=== PATIENT | female | born 1965 | race American Indian/Alaskan Native ===

== ENCOUNTER 2021-09-14 12:34 | Inpatient (IN) | payer MEDICAID ==
--- NOTE | 2021-09-14 13:25 | Emergency Department Report ---
ED Shortness of Breath HPI - General Chief Complaint: Dyspnea/Respdistress Stated Complaint: SHORTNESS OF BREATH Time Seen by Provider: 09/14/21 13:18 Source: patient, EMS Mode of arrival: Stretcher Limitations: No Limitations - History of Present Illness Initial Comments: Patient is a 55-year-old female with history of end-stage renal disease on dialysis Friday, insulin-dependent diabetes, COPD and hypertension brought in from home by EMS with complaint of shortness of breath and anxiety. States that she missed her last 2 dialysis appointments. Dialysis transport did not show up to her home today. She denies fever or chills. EMS reports stable vital signs during transport. - Related Data Allergies Allergy/AdvReac Type Severity Reaction Status Date / Time codeine AdvReac Itching Verified 09/14/21 12:56 ED Review of Systems ROS: Stated complaint: SHORTNESS OF BREATH Other details as noted in HPI Constitutional: denies: chills, fever Respiratory: shortness of breath Cardiovascular: denies: chest pain, palpitations Endocrine: no symptoms reported Gastrointestinal: denies: abdominal pain, nausea, diarrhea Genitourinary: denies: urgency, dysuria, discharge Musculoskeletal: denies: back pain, joint swelling, arthralgia Skin: denies: rash, lesions Neurological: denies: headache, weakness, paresthesias Psychiatric: anxiety ED Past Medical Hx - Past Medical History Hx Hypertension: Yes Hx Diabetes: Yes Hx Renal Disease: Yes (HD MWF) Hx COPD: Yes ED Physical Exam - General Limitations: No Limitations General appearance: alert, in no apparent distress, obese - Head Head exam: Present: atraumatic, normocephalic - Respiratory Respiratory exam: Present: decreased breath sounds, other (Nasal cannula O2 in place). Absent: respiratory distress - Cardiovascular Cardiovascular Exam: Present: regular rate, normal rhythm, normal heart sounds - GI/Abdominal GI/Abdominal exam: Present: soft. Absent: distended, tenderness - Rectal Rectal exam: Present: deferred - Extremities Exam Extremities exam: Present: normal inspection. Absent: pedal edema - Neurological Exam Neurological exam: Present: alert, oriented X3 - Psychiatric Psychiatric exam: Present: normal affect, normal mood - Skin Skin exam: Present: warm, dry, intact, normal color ED Course Vital Signs 09/14/21 09/14/21 09/14/21 12:56 13:29 14:31 Temperature 97.6 F 98.3 F Pulse Rate 62 47 L Respiratory 18 20 20 Rate Blood Pressure 132/55 Blood Pressure 149/55 132/55 [Left] O2 Sat by Pulse 100 99 97 Oximetry 09/14/21 15:19 Temperature 98.2 F Pulse Rate 50 L Respiratory 20 Rate Blood Pressure Blood Pressure 130/33 [Left] O2 Sat by Pulse 95 Oximetry ED Medical Decision Making - Lab Data Result diagrams: 09/14/21 13:48 09/14/21 13:48 - EKG Data -: EKG Interpreted by Me EKG shows normal: sinus rhythm Rate: bradycardia - EKG Data 09/14/21 16:15 Low voltage. Peaked T waves. - Radiology Data Radiology results: image reviewed interpreted by me: Cardiomegaly present with bilateral interstitial edema. - Medical Decision Making EKG findings concerning for hyperkalemia. This was confirmed by chemistry revealing serum potassium of 7.3. Creatinine 15.5, BUN 101. Patient given IV calcium gluconate, oral Kayexalate, IV insulin and dextrose. Nephrology consulted and will perform emergent dialysis in the emergency department. Will admit to hospitalist. Critical Care Time: Yes Critical care time in (mins) excluding proc time.: 60 Critical care attestation.: If time is entered above; I have spent that time in minutes in the direct care of this critically ill patient, excluding procedure time. ED Disposition Clinical Impression: Hyperkalemia, Volume overload, Pulmonary edema Disposition: 09 ADMITTED INPATIENT Is pt being admited?: Yes Condition: Stable Instructions: Pulmonary Edema (ED)
--- NOTE | 2021-09-14 13:51 | XRay Report ---
CHEST 1 VIEW 09/14/2021 12:37 PM INDICATION / CLINICAL INFORMATION: Dyspnea. History of ESRD. COMPARISON: None available. FINDINGS: SUPPORT DEVICES: None. HEART / MEDIASTINUM: The cardiac silhouette is mildly enlarged with central vascular congestion. LUNGS / PLEURA: There are generalized bilateral pulmonary opacities. No significant pleural effusion. No pneumothorax. ADDITIONAL FINDINGS: No significant additional findings. IMPRESSION: Mild cardiomegaly with central vascular congestion and probable bilateral atelectasis/edema. Signer Name: Pito Timmons MD Signed: 09/14/2021 1:46 PM Workstation Name: [id number]
[2021-09-14 14:36] LABS: Hematocrit 31.6 % (30.3-42.9); Hemoglobin 9.9 gm/dl (10.1-14.3); Mean Corpuscular HGB Conc 31 % (30-34); Mean Corpuscular Volume 97 fl (79-97); Platelet Count 248 K/mm3 (140-440); Red Blood Count 3.28 M/mm3 (3.65-5.03); Red Cell Distribution Width 15.3 % (13.2-15.2)
[2021-09-14 15:03] LABS: Basophils % (Auto) 0.7 % (0.0-1.8); Eosinophils # (Auto) 0.3 K/mm3 (0.0-0.4); Eosinophils % (Auto) 5.3 % (0.0-4.3); Lymphocytes # (Auto) 1.7 K/mm3 (1.2-5.4); Lymphocytes % (Auto) 34.3 % (13.4-35.0); Monocytes # (Auto) 0.4 K/mm3 (0.0-0.8); Monocytes % (Auto) 8.5 % (0.0-7.3)
[2021-09-14] MEDS ORDERED: ACETAMINOPHEN 325 MG TAB PO ONE (15:21)
[2021-09-14 16:02] LABS: Albumin 4.5 g/dL (3.9-5); Calcium 9.6 mg/dL (8.4-10.2)
[2021-09-14] MEDS ORDERED: SODIUM POLYSTYRENE 15 GM/60 ML ORAL LIQD PO ONE (16:08)
[2021-09-14] MEDS ORDERED: DEXTROSE 50% IN WATER (25GM) 50 ML VIAL IV ONE (16:09)
[2021-09-14] MEDS ORDERED: INSULIN REGULAR, HUMAN 100 UNITS/1 ML IV ONE (16:09)
[2021-09-14] MEDS ORDERED: SODIUM CHLORIDE 0.9% 100 ML IV PRN (16:46)
--- NOTE | 2021-09-14 16:49 | Event Note ---
Date: 09/14/21 Consulted by ED for emergent HD. Per Dr. Galeas, patient missed 2 dialysis treatments. She presents to the ED with SOB. Labs notable for K>7, BUN>100 * Emergent HD ordered - discussed with dialysis charge master analyst * Full consult to follow
[2021-09-14] MEDS ORDERED: DEXTROSE 50% IN WATER (25GM) 50 ML SYRINGE IV ONE (17:00)
[2021-09-14] MEDS ORDERED: CALCIUM GLUCONATE 1,000 MG in SODIUM CHLORIDE 0.9% 100 ML IV ONE (17:00)
[2021-09-14] MEDS ORDERED: CALCIUM GLUCONATE 2,000 MG in SODIUM CHLORIDE 0.9% 100 ML IV ONE (20:07)
[2021-09-14] MEDS ORDERED: METOCLOPRAMIDE 10 MG/2 ML INJ IV PRN (20:08)
[2021-09-14] MEDS ORDERED: MORPHINE 2 MG/1 ML INJ IV PRN (20:08)
[2021-09-14] MEDS ORDERED: ONDANSETRON 4 MG/2 ML INJ IV PRN (20:08)
--- NOTE | 2021-09-14 20:16 | History and Physical Report ---
History of Present Illness Date of examination: 09/14/21 Date of admission: 09/14/2021 Chief complaint: Increasing shortness of breath for last 36 hours History of present illness: 55-year-old -[place] female with history of hypertension, diabetes, end- stage renal disease on hemodialysis on Friday and COPD comes in for increasing shortness of breath for the last 36 hours. Patient missed 2 dialysis appointments. Apparently dialysis transport did not show up. No fever or chills. Shortness of breath minimal exertion present orthopnea present. No chest pain. No diaphoresis. No palpitations no nausea or vomiting. Minimal exercises are exacerbating factor rest is a relieving factor. - Past Medical History --Hypertension: Yes --Diabetes: Yes --Renal Disease: Yes (HD MWF) --COPD: Yes -past surgical history --AV fistula -social history -- No smoking or alcohol. -Family history --Htn Review of Systems ROS: Stated complaint: SHORTNESS OF BREATH Other details as noted in HPI Constitutional: denies: chills, fever Respiratory: shortness of breath Cardiovascular: Shortness of breath and orthopnea present, no chest pain. Endocrine: no symptoms reported Gastrointestinal: denies: abdominal pain, nausea, diarrhea Genitourinary: denies: urgency, dysuria, discharge Musculoskeletal: denies: back pain, joint swelling, arthralgia Skin: denies: rash, lesions Neurological: denies: headache, weakness, paresthesias Psychiatric: anxiety Medications and Allergies Allergies Allergy/AdvReac Type Severity Reaction Status Date / Time codeine Allergy Itching Verified 09/14/21 20:22 Active Meds: Active Medications Sodium Chloride (Nacl 0.9%) 100 mls @ 999 mls/hr IV SRI PRN PRN Reason: Hypotension Exam - Constitutional Vitals: Temp Pulse Resp BP Pulse Ox 98.4 F 93 H 15 133/55 92 09/14/21 18:10 09/14/21 19:30 09/14/21 18:10 09/14/21 19:30 09/14/21 18:10 General appearance: Present: mild distress, well-nourished - EENT Eyes: Present: PERRL ENT: hearing intact, clear oral mucosa - Neck Neck: Present: supple, normal ROM - Respiratory Respiratory effort: normal Respiratory: bilateral: CTA, rales (Scattered) - Cardiovascular Heart rate: 78 Rhythm: regular Heart Sounds: Present: S1 & S2. Absent: rub, click - Extremities Extremities: pulses symmetrical, No edema Peripheral Pulses: within normal limits - Abdominal General gastrointestinal: Present: soft, non-tender, non-distended, normal bowel sounds Female genitourinary: Present: normal - Integumentary Integumentary: Present: clear, warm, dry - Musculoskeletal Musculoskeletal: gait normal, strength equal bilaterally - Psychiatric Psychiatric: appropriate mood/affect, intact judgment & insight - Neurologic Neurologic: CNII-XII intact, moves all extremities HEART Score - HEART Score History: Slightly suspicious Age: 45-65 Risk factors: > 3 risk factors or hx of atherosclerotic disease Troponin: 1-3x normal limit - Critical Actions Critical Actions: 4-6 pts:12-16.6% risk of adverse cardiac event. Should be admitted Results - Labs CBC & Chem 7: 09/14/21 13:48 09/14/21 22:00 Labs: Laboratory Last Values WBC 5.3 K/mm3 (4.5-11.0) 09/14/21 13:48 RBC 3.28 M/mm3 (3.65-5.03) L 09/14/21 13:48 Hgb 9.9 gm/dl (10.1-14.3) L 09/14/21 13:48 Hct 31.6 % (30.3-42.9) 09/14/21 13:48 MCV 97 fl (79-97) 09/14/21 13:48 MCH 30 pg (28-32) 09/14/21 13:48 MCHC 31 % (30-34) 09/14/21 13:48 RDW 15.3 % (13.2-15.2) H 09/14/21 13:48 Plt Count 248 K/mm3 (140-440) 09/14/21 13:48 Lymph % (Auto) 34.3 % (13.4-35.0) 09/14/21 13:48 [place] % (Auto) 8.5 % (0.0-7.3) H 09/14/21 13:48 Eos % (Auto) 5.3 % (0.0-4.3) H 09/14/21 13:48 Baso % (Auto) 0.7 % (0.0-1.8) 09/14/21 13:48 Lymph # (Auto) 1.7 K/mm3 (1.2-5.4) 09/14/21 13:48 [place] # (Auto) 0.4 K/mm3 (0.0-0.8) 09/14/21 13:48 Eos # (Auto) 0.3 K/mm3 (0.0-0.4) 09/14/21 13:48 Baso # (Auto) 0.0 K/mm3 (0.0-0.1) 09/14/21 13:48 Seg Neutrophils % 51.2 % (40.0-70.0) 09/14/21 13:48 Seg Neutrophils # 2.5 K/mm3 (1.8-7.7) 09/14/21 13:48 Sodium 135 mmol/L (137-145) L 09/14/21 13:48 Potassium 7.3 mmol/L (3.6-5.0) H* 09/14/21 13:48 Chloride 94.3 mmol/L (98-107) L 09/14/21 13:48 Carbon Dioxide 18 mmol/L (22-30) L 09/14/21 13:48 Anion Gap 30 mmol/L 09/14/21 13:48 BUN 101 mg/dL (7-17) H 09/14/21 13:48 Creatinine 15.5 mg/dL (0.6-1.2) H 09/14/21 13:48 Estimated GFR 3 ml/min 09/14/21 13:48 BUN/Creatinine Ratio 7 % 09/14/21 13:48 Glucose 74 mg/dL (65-100) 09/14/21 13:48 Calcium 9.6 mg/dL (8.4-10.2) 09/14/21 13:48 Total Bilirubin 0.40 mg/dL (0.1-1.2) 09/14/21 13:48 AST 13 units/L (5-40) 09/14/21 13:48 ALT 7 units/L (7-56) 09/14/21 13:48 Alkaline Phosphatase 71 units/L (35-129) 09/14/21 13:48 NT-Pro-B Natriuret Pep 8056 pg/mL (0-900) H 09/14/21 13:48 Total Protein 8.0 g/dL (6.3-8.2) 09/14/21 13:48 Albumin 4.5 g/dL (3.9-5) 09/14/21 13:48 Albumin/Globulin Ratio 1.3 % 09/14/21 13:48 Short CBC 09/14/21 Range/Units 13:48 WBC 5.3 (4.5-11.0) K/mm3 Hgb 9.9 L (10.1-14.3) gm/dl Hct 31.6 (30.3-42.9) % Plt Count 248 (140-440) K/mm3 BMP 09/14/21 09/14/21 13:48 22:00 Sodium 135 L Potassium 7.3 H* 4.2 D Chloride 94.3 L Carbon Dioxide 18 L BUN 101 H Creatinine 15.5 H Glucose 74 Calcium 9.6 Liver Function 09/14/21 Range/Units 13:48 Total Bilirubin 0.40 (0.1-1.2) mg/dL AST 13 (5-40) units/L ALT 7 (7-56) units/L Alkaline Phosphatase 71 (35-129) units/L Albumin 4.5 (3.9-5) g/dL - Imaging and Cardiology EKG: report reviewed (Sinus bradycardia, heart rate of 59/min, multiform vent ricular premature complexes. Low voltage precordial leads.) Chest x-ray: report reviewed Imaging and Cardiology: Chest x-ray Mild cardiomegaly with central vascular congestion and probable bilateral atelectasis and edema. Assessment and Plan Advance Directives: Yes (Full code) VTE prophylaxis?: Chemical Plan of care discussed with patient/family: Yes - Patient Problems (1) Acute respiratory failure with hypoxia Current Visit: Yes Status: Acute Plan to address problem: Patient is hypoxic initially at the time of admission to the emergency room Saturations in 86 to 88% Oxygen supplementation as per respiratory therapy (2) Hyperkalemia Current Visit: Yes Status: Acute Plan to address problem: Patient has a potassium of 7.3 Kayexalate and IV calcium gluconate and insulin given Emergent hemodialysis Orders placed Nephrology follow-up appreciated (3) Pulmonary edema Current Visit: Yes Status: Acute Qualifiers: Chronicity: acute Qualified Code(s): J81.0 - Acute pulmonary edema Plan to address problem: Secondary to volume overload and missed hemodialysis Emergent hemodialysis for increased ultrafiltration and volume removal of about 2 L Reevaluated. (4) End-stage renal disease on hemodialysis Current Visit: Yes Status: Acute Plan to address problem: Emergent hemodialysis orders were placed (5) T2DM (type 2 diabetes mellitus) Current Visit: Yes Status: Chronic Qualifiers: Diabetes mellitus correction insulin use: unspecified terminal worker insulin use status Plan to address problem: Coverage for now (6) Anemia Current Visit: Yes Status: Chronic Qualifiers: Anemia type: due to chronic kidney disease Plan to address problem: Epogen as per nephrology (7) DVT prophylaxis Current Visit: Yes Status: Acute Plan to address problem: GI prophylaxis and heparin (8) Advance care planning Current Visit: Yes Status: Acute Plan to address problem: Disease education conducted, care plan discussed, diagnosis discussed prognosis discussed and patient acknowledged understanding with care plan. Patient is full code. Care plan +30 minutes.
[2021-09-14 20:36] LABS: Hepatitis B Surface Antigen Non-Reactive (Negative); Hepatitis C Virus Antibody Non-Reactive (NonReactive)
[2021-09-15] MEDS: HEPARIN 5,000 UNIT/1 ML VIAL SUB-Q SCH ×4 (03:21→21:40)
[2021-09-15 08:25] LABS: Basophils % (Auto) 0.7 % (0.0-1.8); Eosinophils # (Auto) 0.3 K/mm3 (0.0-0.4); Eosinophils % (Auto) 5.5 % (0.0-4.3); Hematocrit 29.4 % (30.3-42.9); Lymphocytes # (Auto) 1.1 K/mm3 (1.2-5.4); Lymphocytes % (Auto) 24.3 % (13.4-35.0); Mean Corpuscular HGB Conc 31 % (30-34); Mean Corpuscular Volume 96 fl (79-97); Monocytes # (Auto) 0.5 K/mm3 (0.0-0.8); Monocytes % (Auto) 10.1 % (0.0-7.3); Platelet Count 255 K/mm3 (140-440); Red Blood Count 3.05 M/mm3 (3.65-5.03); Red Cell Distribution Width 14.7 % (13.2-15.2)
[2021-09-15 08:31] LABS: Albumin 4.1 g/dL (3.9-5); Calcium 9.5 mg/dL (8.4-10.2)
--- NOTE | 2021-09-15 08:43 | Progress Note ---
Assessment and Plan Assessment and plan: History of present illness: 55-year-old -[place] female with history of hypertension, diabetes, end- stage renal disease on hemodialysis on Friday and COPD comes in for increasing shortness of breath for the last 36 hours. Patient missed 2 dialysis appointments. Apparently dialysis transport did not show up. No fever or chills. Shortness of breath minimal exertion present orthopnea present. No chest pain. No diaphoresis. No palpitations no nausea or vomiting. Minimal exercises are exacerbating factor rest is a relieving factor. Hospital Course: 09/15: Patient oxygenation improved. She is currently on 2 L/min nasal cannula. She utilizes 3 L at home per my discussion. Potassium improved after Kayexalate administration on admission, last BMP demonstrates K =4.7. Will continue with dialysis while here in the hospital. Discussed case with Dr. Wadsworth, patient is from out of [facility] does not have a dialysis chair here locally as she recently moved. Will consult case management for assistance. Assessment and Plan: (1) Acute respiratory failure with hypoxia Current Visit: Yes Status: Acute Plan to address problem: Patient is hypoxic initially at the time of admission to the emergency room Saturations in 86 to 88% Oxygen supplementation as per respiratory therapy, home oxygen requirement 3 L/m in. (2) Hyperkalemia Current Visit: Yes Status: Acute Plan to address problem: Patient has a potassium of 7.3 Kayexalate and IV calcium gluconate and insulin given Emergent hemodialysis Orders placed Nephrology follow-up appreciated (3) Pulmonary edema Current Visit: Yes Status: Acute Qualifiers: Chronicity: acute Qualified Code(s): J81.0 - Acute pulmonary edema Plan to address problem: Secondary to volume overload and missed hemodialysis Emergent hemodialysis for increased ultrafiltration and volume removal of about 2 L Reevaluated. 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 Patient is full code. Care plan +30 minutes. #Morbid Obesity - BMI 50.8 - Counseled patient on the importance of weight loss, incorporating exercise, and dietary changes (lean meats, fresh fruits and vegetables, and water intake). Patient expresses understanding. - Time: +15 min #Preventative health care - preventative health counseling regarding management of life stressors, medication compliance and overall effect of chronic medical conditions on overall health. Encourage patient to follow up closely with with OP providers +30 minutes. History Interval history: No acute complaints this morning. Currently on 2 L/min nasal cannula oxygen. Home oxygen requirement is 3 L per patient. She has no issues with breathing per my discussion with her. Patient was complaining about diarrhea from Kayexalate. Remainder of ROS negative Hospitalist Physical - Physical exam Narrative exam: Physical Exam: VITAL SIGNS: Reviewed. GENERAL: The patient appears normally developed, Vital signs as documented. Obese HEAD: No signs of head trauma. EYES: Pupils are equal. Extraocular motions intact. EARS: Hearing grossly intact. MOUTH: Oropharynx is normal. NECK: No adenopathy, no JVD. CHEST: Chest with clear breath sounds bilaterally. No wheezes, rales, or rhonchi. CARDIAC: Regular rate and rhythm. S1 and S2, without murmurs, gallops, or rubs. VASCULAR: No Edema. Peripheral pulses normal and equal in all extremities. ABDOMEN: Soft, non tender and non distended. No rebound or guarding, and no masses palpated. Bowel Sounds normal. MUSCULOSKELETAL: Good range of motion of all major joints. Extremities without clubbing, cyanosis or edema. NEUROLOGIC EXAM: Alert and oriented x 4. no focal sensory or strength deficits. PSYCHIATRIC: Mood normal. SKIN: detail exam as documented in skin assessment - Constitutional Vitals: Temp Pulse Resp BP Pulse Ox 97.8 F 87 20 155/71 97 09/15/21 04:07 09/15/21 05:28 09/15/21 04:07 09/15/21 04:07 09/15/21 04:49 General appearance: Present: mild distress, well-nourished HEART Score - HEART Score Age: 45-65 Risk factors: > 3 risk factors or hx of atherosclerotic disease Troponin: 1-3x normal limit - Critical Actions Critical Actions: 4-6 pts:12-16.6% risk of adverse cardiac event. Should be admitted Results - Labs CBC & Chem 7: 09/15/21 06:44 09/15/21 06:44 Labs: Laboratory Last Values WBC 4.6 K/mm3 (4.5-11.0) 09/15/21 06:44 RBC 3.05 M/mm3 (3.65-5.03) L 09/15/21 06:44 Hgb 9.0 gm/dl (10.1-14.3) L 09/15/21 06:44 Hct 29.4 % (30.3-42.9) L 09/15/21 06:44 MCV 96 fl (79-97) 09/15/21 06:44 MCH 29 pg (28-32) 09/15/21 06:44 MCHC 31 % (30-34) 09/15/21 06:44 RDW 14.7 % (13.2-15.2) 09/15/21 06:44 Plt Count 255 K/mm3 (140-440) 09/15/21 06:44 Lymph % (Auto) 24.3 % (13.4-35.0) 09/15/21 06:44 [place] % (Auto) 10.1 % (0.0-7.3) H 09/15/21 06:44 Eos % (Auto) 5.5 % (0.0-4.3) H 09/15/21 06:44 Baso % (Auto) 0.7 % (0.0-1.8) 09/15/21 06:44 Lymph # (Auto) 1.1 K/mm3 (1.2-5.4) L 09/15/21 06:44 [place] # (Auto) 0.5 K/mm3 (0.0-0.8) 09/15/21 06:44 Eos # (Auto) 0.3 K/mm3 (0.0-0.4) 09/15/21 06:44 Baso # (Auto) 0.0 K/mm3 (0.0-0.1) 09/15/21 06:44 Seg Neutrophils % 59.4 % (40.0-70.0) 09/15/21 06:44 Seg Neutrophils # 2.7 K/mm3 (1.8-7.7) 09/15/21 06:44 Sodium 135 mmol/L (137-145) L 09/14/21 13:48 Potassium 4.2 mmol/L (3.6-5.0) D 09/14/21 22:00 Chloride 94.3 mmol/L (98-107) L 09/14/21 13:48 Carbon Dioxide 18 mmol/L (22-30) L 09/14/21 13:48 Anion Gap 30 mmol/L 09/14/21 13:48 BUN 101 mg/dL (7-17) H 09/14/21 13:48 Creatinine 15.5 mg/dL (0.6-1.2) H 09/14/21 13:48 Estimated GFR 3 ml/min 09/14/21 13:48 BUN/Creatinine Ratio 7 % 09/14/21 13:48 Glucose 74 mg/dL (65-100) 09/14/21 13:48 Calcium 9.6 mg/dL (8.4-10.2) 09/14/21 13:48 Total Bilirubin 0.40 mg/dL (0.1-1.2) 09/14/21 13:48 AST 13 units/L (5-40) 09/14/21 13:48 ALT 7 units/L (7-56) 09/14/21 13:48 Alkaline Phosphatase 71 units/L (35-129) 09/14/21 13:48 NT-Pro-B Natriuret Pep 8056 pg/mL (0-900) H 09/14/21 13:48 Total Protein 8.0 g/dL (6.3-8.2) 09/14/21 13:48 Albumin 4.5 g/dL (3.9-5) 09/14/21 13:48 Albumin/Globulin Ratio 1.3 % 09/15/21 06:44 Hepatitis A IgM Ab Non-reactive (NonReactive) 09/14/21 19:42 Hep Bs Antigen Non-reactive (Negative) 09/14/21 19:42 Hep B Core IgM Ab Non-reactive (NonReactive) 09/14/21 19:42 Hepatitis C Antibody Non-reactive (NonReactive) 09/14/21 19:42 Smith/IV: Voiding Method Bedside Commode Active Medications - Current Medications Current Medications: Generic Name Dose Route Start Last Admin Trade Name Freq PRN Reason Stop Dose Admin Acetaminophen 650 mg 09/14/21 20:08 Acetaminophen 325 Mg Tab PO Q4H PRN Pain MILD(1-3)/Fever >100.5/BURTON Heparin Sodium (Porcine) 5,000 unit 09/14/21 22:00 09/15/21 03:21 Heparin 5,000 Unit/1 Ml Vial SUB-Q 5,000 unit Q12HR NINA Administration Sodium Chloride 100 mls @ 999 mls/hr 09/14/21 16:46 Nacl 0.9% IV SRI PRN Hypotension Insulin Human Lispro 0 unit 09/15/21 07:30 Insulin Lispro 100 Unit/Ml SUB-Q ACHS [facility] Protocol Metoclopramide HCl 10 mg 09/14/21 20:08 Metoclopramide 10 Mg/2 Ml Inj IV Q6H PRN Nausea And Vomiting Morphine Sulfate 2 mg 09/14/21 20:08 Morphine 2 Mg/1 Ml Inj IV Q4H PRN Pain, Moderate (4-6) Ondansetron HCl 4 mg 09/14/21 20:08 Ondansetron 4 Mg/2 Ml Inj IV Q8H PRN Nausea And Vomiting Oxycodone/Acetaminophen 1 tab 09/14/21 20:08 Oxycodone /Acetaminophen 5-325mg Tab PO Q6H PRN Pain, Moderate (4-6) Sodium Chloride 10 ml 09/14/21 22:00 09/15/21 05:36 Sodium Chloride 0.9% 10 Ml Flush Syringe IV Not Given BID NINA Sodium Chloride 10 ml 09/14/21 20:08 Sodium Chloride 0.9% 10 Ml Flush Syringe IV PRN PRN LINE FLUSH
[2021-09-15] MEDS: INSULIN LISPRO 100 UNIT/ML SUB-Q SCH ×4 (09:12→21:36)
[2021-09-15] MEDS: ACETAMINOPHEN 325 MG TAB PO PRN ×2 (09:16→21:37)
--- NOTE | 2021-09-15 13:12 | Consultation ---
History of Present Illness - Reason for Consult Consult date: 09/15/21 end stage renal disease, hyperkalemia - History of Present Illness Mrs. Jerez is a 55yo with ESRD on HD who presented to the ED with SOB. She reports that she missed 2 dialysis treatments. Labs notable for K>7, BUN>100. She is s/p emergent HD overnight. Today, she has no complaints. Mrs. Jerez reports that she recently relocated from [facility]. She states that she has not yet established dialysis care at an outpatient facility. Past History Past Medical History: ESRD, hypertension Past Surgical History: Other (DIANA AV access creation) Social history: no significant social history Family history: no significant family history Medications and Allergies Allergies Allergy/AdvReac Type Severity Reaction Status Date / Time codeine Allergy Itching Verified 09/14/21 20:22 Home Medications Medication Instructions Recorded Confirmed Last Taken Type ALPRAZolam [Xanax TAB] 0.5 mg PO BID PRN 09/15/21 09/15/21 Unknown History Albuterol Mdi (or & Nicu Only) 2 puff IH QID PRN 09/15/21 09/15/21 Unknown History [ProAir HFA Inhaler] Albuterol Sulfate [Albuterol 0.63% 0.63 mg IH DAILY 09/15/21 09/15/21 Unknown History NEBS] Budesonide/Formoterol Fumarate 10.2 gm IH BID 09/15/21 09/15/21 Unknown History [Symbicort 160-4.5 Mcg Inhaler] Metoprolol [Lopressor] 25 mg PO DAILY 09/15/21 09/15/21 Unknown History amLODIPine 5 mg PO DAILY 09/15/21 09/15/21 Unknown History Active Meds: Active Medications Acetaminophen (Acetaminophen 325 Mg Tab) 650 mg PO Q4H PRN PRN Reason: Pain MILD(1-3)/Fever >100.5/BURTON Last Admin: 09/15/21 09:16 Dose: 650 mg Heparin Sodium (Porcine) (Heparin 5,000 Unit/1 Ml Vial) 5,000 unit SUB-Q Q12HR NINA Last Admin: 09/15/21 09:17 Dose: 5,000 unit Sodium Chloride (Nacl 0.9%) 100 mls @ 999 mls/hr IV SRI PRN PRN Reason: Hypotension Insulin Human Lispro (Insulin Lispro 100 Unit/Ml) 0 unit SUB-Q ACHS NINA; Protocol Last Admin: 09/15/21 09:12 Dose: Not Given Metoclopramide HCl (Metoclopramide 10 Mg/2 Ml Inj) 10 mg IV Q6H PRN PRN Reason: Nausea And Vomiting Morphine Sulfate (Morphine 2 Mg/1 Ml Inj) 2 mg IV Q4H PRN PRN Reason: Pain, Moderate (4-6) Ondansetron HCl (Ondansetron 4 Mg/2 Ml Inj) 4 mg IV Q8H PRN PRN Reason: Nausea And Vomiting Oxycodone/Acetaminophen (Oxycodone /Acetaminophen 5-325mg Tab) 1 tab PO Q6H PRN PRN Reason: Pain, Moderate (4-6) Sodium Chloride (Sodium Chloride 0.9% 10 Ml Flush Syringe) 10 ml IV BID [facility] Last Admin: 09/15/21 09:17 Dose: 10 ml Sodium Chloride (Sodium Chloride 0.9% 10 Ml Flush Syringe) 10 ml IV PRN PRN PRN Reason: LINE FLUSH Review of Systems All systems: negative Exam - Vital Signs Vital signs: Vital Signs Temp Pulse Resp BP Pulse Ox 97.6 F 62 18 149/55 100 09/14/21 12:56 09/14/21 12:56 09/14/21 12:56 09/14/21 12:56 09/14/21 12:56 - General Appearance General appearance: well-developed, well-nourished EENT: ATNC Respiratory: Decreased Breath Sounds Gastrointestinal: Present: obese. Absent: tenderness, distended Integumentary: warm and dry Neurologic: no focal deficit, alert and oriented x3 Psychiatric: cooperative Results - Lab Results 09/15/21 06:44 09/15/21 06:44 Most recent lab results Calcium 9.5 mg/dL (8.4-10.2) 09/15/21 06:44 Assessment and Plan Impression: * End stage renal disease * Severe hyperkalemia * Uremia * Hypertension * Anemia secondary to ESRD * Secondary hyperparathyroidism Plan: * No acute need for HD today * In order to ensure a safe discharge, recommend that patient remain hospitalized to secure outpatient dialysis clinic * CM consult for outpatient HD clinic placement * Renal diet * Epogen TIW prn * Dose medications for renal function
[2021-09-15] MEDS: oxyCODONE /ACETAMINOPHEN 5-325MG TAB PO PRN (13:18)
[2021-09-16] MEDS: ACETAMINOPHEN 325 MG TAB PO PRN ×3 (05:58→21:22)
[2021-09-16 06:19] LABS: Calcium 9.3 mg/dL (8.4-10.2)
[2021-09-16] MEDS: INSULIN LISPRO 100 UNIT/ML SUB-Q SCH ×4 (08:21→21:09)
[2021-09-16] MEDS: oxyCODONE /ACETAMINOPHEN 5-325MG TAB PO PRN ×2 (08:21→23:34)
[2021-09-16] MEDS: ALBUTEROL 2.5 MG/3 ML NEBU IH PRN ×2 (09:54→23:38)
[2021-09-16] MEDS: HEPARIN 5,000 UNIT/1 ML VIAL SUB-Q SCH ×2 (10:17→21:23)
[2021-09-16] MEDS: ALPRAZolam 0.25 MG TAB PO PRN ×2 (10:22→23:34)
[2021-09-16] MEDS ORDERED: SODIUM CHLORIDE 0.9% 100 ML IV PRN (16:31)
--- NOTE | 2021-09-16 18:31 | Progress Note ---
Assessment and Plan Impression: * End stage renal disease * Severe hyperkalemia * Uremia * Hypertension * Anemia secondary to ESRD * Secondary hyperparathyroidism Plan: * No acute need for HD today * Hemodialysis tomorrow - continue HD MWF * Renal diet * Epogen TIW prn * Dose medications for renal function * In order to ensure a safe discharge, recommend that patient remain hospitalized to secure outpatient dialysis clinic * CM consult for outpatient HD clinic placement Subjective Date of service: 09/16/21 Interval history: Patient has no complaints today Objective - Vital Signs Vital signs: Vital Signs - 12hr 09/16/21 09/16/21 09/16/21 08:17 08:35 08:40 Temperature 98.0 F Pulse Rate 80 Pulse Rate [ Anterior Bilateral Throughout] Respiratory 18 16 Rate Respiratory Rate [Anterior Bilateral Throughout] Blood Pressure 147/83 159/84 Blood Pressure [Left] O2 Sat by Pulse 100 Oximetry 09/16/21 09/16/21 09/16/21 09:00 09:55 10:00 Temperature Pulse Rate Pulse Rate [ 76 Anterior Bilateral Throughout] Respiratory Rate Respiratory 20 Rate [Anterior Bilateral Throughout] Blood Pressure Blood Pressure 147/83 [Left] O2 Sat by Pulse 99 Oximetry 09/16/21 09/16/21 11:41 14:00 Temperature Pulse Rate 78 Pulse Rate [ Anterior Bilateral Throughout] Respiratory 18 Rate Respiratory Rate [Anterior Bilateral Throughout] Blood Pressure Blood Pressure [Left] O2 Sat by Pulse 96 Oximetry - General Appearance General appearance: well-developed, well-nourished, obese EENT: ATNC Respiratory: Present: Clear to Ascultation Cardiology: regular, S1S2 Gastrointestinal: normal, no tenderness, no distended, obese Integumentary: warm and dry Psychiatric: cooperative - Lab 09/15/21 06:44 09/16/21 05:37 Most recent lab results Calcium 9.3 mg/dL (8.4-10.2) 09/16/21 05:37 Medications & Allergies - Medications Allergies/Adverse Reactions: Allergies codeine Allergy (Verified 09/14/21 20:22) Itching Home Medications: Home Medications Medication Instructions Recorded Confirmed Last Taken Type ALPRAZolam [Xanax TAB] 0.5 mg PO BID PRN 09/15/21 09/15/21 Unknown History Albuterol Mdi (or & Nicu Only) 2 puff IH QID PRN 09/15/21 09/15/21 Unknown History [ProAir HFA Inhaler] Albuterol Sulfate [Albuterol 0.63% 0.63 mg IH DAILY 09/15/21 09/15/21 Unknown History NEBS] Budesonide/Formoterol Fumarate 10.2 gm IH BID 09/15/21 09/15/21 Unknown History [Symbicort 160-4.5 Mcg Inhaler] Metoprolol [Lopressor] 25 mg PO DAILY 09/15/21 09/15/21 Unknown History amLODIPine 5 mg PO DAILY 09/15/21 09/15/21 Unknown History Active Medications: Generic Name Dose Route Start Last Admin Trade Name Freq PRN Reason Stop Dose Admin Acetaminophen 650 mg 09/14/21 20:08 09/16/21 10:22 Acetaminophen 325 Mg Tab PO 650 mg Q4H PRN Administration Pain MILD(1-3)/Fever >100.5/BURTON Albuterol 2.5 mg 09/15/21 13:16 09/16/21 09:54 Albuterol 2.5 Mg/3 Ml Nebu IH 2.5 mg Q4HRT PRN Administration Shortness Of Breath Alprazolam 0.25 mg 09/15/21 13:16 09/16/21 10:22 Alprazolam 0.25 Mg Tab PO 0.25 mg Q8H PRN Administration Anxiety Heparin Sodium (Porcine) 5,000 unit 09/14/21 22:00 09/16/21 10:17 Heparin 5,000 Unit/1 Ml Vial SUB-Q 5,000 unit Q12HR NINA Administration Sodium Chloride 100 mls @ 999 mls/hr 09/14/21 16:46 Nacl 0.9% IV SRI PRN Hypotension Insulin Human Lispro 0 unit 09/15/21 07:30 09/16/21 13:04 Insulin Lispro 100 Unit/Ml SUB-Q Not Given ACHS [facility] Protocol Metoclopramide HCl 10 mg 09/14/21 20:08 Metoclopramide 10 Mg/2 Ml Inj IV Q6H PRN Nausea And Vomiting Morphine Sulfate 2 mg 09/14/21 20:08 Morphine 2 Mg/1 Ml Inj IV Q4H PRN Pain, Moderate (4-6) Ondansetron HCl 4 mg 09/14/21 20:08 Ondansetron 4 Mg/2 Ml Inj IV Q8H PRN Nausea And Vomiting Oxycodone/Acetaminophen 1 tab 09/14/21 20:08 09/16/21 08:21 Oxycodone /Acetaminophen 5-325mg Tab PO 1 tab Q6H PRN Administration Pain, Moderate (4-6) Sodium Chloride 10 ml 09/14/21 22:00 09/16/21 10:17 Sodium Chloride 0.9% 10 Ml Flush Syringe IV 10 ml BID NINA Administration Sodium Chloride 10 ml 09/14/21 20:08 Sodium Chloride 0.9% 10 Ml Flush Syringe IV PRN PRN LINE FLUSH
--- NOTE | 2021-09-17 06:16 | Progress Note ---
Assessment and Plan - Patient Problems (1) Acute respiratory failure with hypoxia Current Visit: Yes Status: Acute Plan to address problem: Improved (2) Hyperkalemia Current Visit: Yes Status: Acute Plan to address problem: Patient had a potassium of 7.3 Improved to 5.0 (3) Pulmonary edema Current Visit: Yes Status: Acute Qualifiers: Chronicity: acute Qualified Code(s): J81.0 - Acute pulmonary edema Plan to address problem: Improved (4) End-stage renal disease on hemodialysis Current Visit: Yes Status: Acute Plan to address problem: Emergent hemodialysis orders were placed (5) T2DM (type 2 diabetes mellitus) Current Visit: Yes Status: Chronic 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 Patient is full code. Care plan +30 minutes. (9) Discharge planning issues Current Visit: Yes Status: Acute Plan to address problem: Patient needs a hemodialysis chair Case management consult requested Subjective Date of service: 09/16/21 Principal diagnosis: Acute respiratory failure with hypoxia, pulmonary edema Interval history: 55-year-old -[place] female with history of hypertension, diabetes, end- stage renal disease on hemodialysis on Friday and COPD comes in for increasing shortness of breath for the last 36 hours. Patient missed 2 dialysis appointments. Apparently dialysis transport did not show up. No fever or chills. Shortness of breath minimal exertion present orthopnea present. No chest pain. No diaphoresis. No palpitations no nausea or vomiting. Minimal exercises are exacerbating factor rest is a relieving factor. 09/16/2021 Shortness of breath is better Stable Hemodialysis chair to be arranged Case management consult requested for hemodialysis chair Objective - Constitutional Vitals: Vital Signs - 12hr 09/16/21 09/16/21 09/16/21 19:19 20:11 22:00 Temperature 98.1 F 98.1 F Pulse Rate 73 76 75 Pulse Rate [ Anterior Bilateral Throughout] Respiratory 18 18 Rate Respiratory Rate [Anterior Bilateral Throughout] Blood Pressure 179/55 Blood Pressure 154/61 [Left] O2 Sat by Pulse 97 98 98 Oximetry 09/16/21 09/17/21 09/17/21 23:38 00:10 04:00 Temperature 98.5 F Pulse Rate Pulse Rate [ 83 Anterior Bilateral Throughout] Respiratory 18 18 Rate Respiratory 20 Rate [Anterior Bilateral Throughout] Blood Pressure 164/78 Blood Pressure [Left] O2 Sat by Pulse 96 Oximetry 09/17/21 04:17 Temperature 97.5 F L Pulse Rate 77 Pulse Rate [ Anterior Bilateral Throughout] Respiratory 18 Rate Respiratory Rate [Anterior Bilateral Throughout] Blood Pressure 141/65 Blood Pressure [Left] O2 Sat by Pulse 97 Oximetry General appearance: Present: no acute distress, well-nourished - EENT Eyes: PERRL, EOM intact ENT: hearing intact, clear oral mucosa Ears: bilateral: normal - Neck Neck: supple, normal ROM - Respiratory Respiratory effort: normal Respiratory: bilateral: CTA - Breasts Breasts: normal - Cardiovascular Heart rate: 78 Rhythm: regular Heart Sounds: Present: S1 & S2. Absent: gallop, rub Extremities: no ischemia, pulses intact, No edema, normal color, Full ROM - Gastrointestinal General gastrointestinal: Present: soft, non-tender, non-distended, normal bowel sounds - Genitourinary Female genitourinary: normal - Integumentary Integumentary: clear, warm, dry - Musculoskeletal Musculoskeletal: 1, strength equal bilaterally - Neurologic Neurologic: moves all extremities - Psychiatric Psychiatric: memory intact, appropriate mood/affect, intact judgment & insight - Labs CBC & Chem 7: 09/15/21 06:44 09/16/21 05:37 Labs: Abnormal lab results 09/16/21 09/16/21 09/16/21 Range/Units 05:37 15:44 19:46 BUN 62 H (7-17) mg/dL Creatinine 13.5 H (0.6-1.2) mg/dL POC Glucose 129 H 125 H (70-105) mg/dL HEART Score - HEART Score Age: 45-65 Risk factors: > 3 risk factors or hx of atherosclerotic disease Troponin: 1-3x normal limit - Critical Actions Critical Actions: 4-6 pts:12-16.6% risk of adverse cardiac event. Should be admitted
[2021-09-17] MEDS: ALBUTEROL 2.5 MG/3 ML NEBU IH PRN (08:58)
--- NOTE | 2021-09-17 09:49 | Progress Note ---
Assessment and Plan Impression: * End stage renal disease * Hyperkalemia * Uremia * Hypertension * Anemia secondary to ESRD * Secondary hyperparathyroidism Plan: * Hemodialysis today - continue HD MWF while in house for regular toxin/electrolyte/volume management * Renal diet * Epogen TIW prn * Bp stable, UF as tolerated * Dose medications for renal function * In order to ensure a safe discharge, recommend that patient remain hospitalized to secure outpatient dialysis clinic * CM consult for outpatient HD clinic placement Subjective Date of service: 09/17/21 Principal diagnosis: Acute respiratory failure with hypoxia, pulmonary edema Interval history: Denies any acute issues this AM. Breathing stable. Objective - Exam Narrative Exam: General appearance: well-developed, well-nourished EENT: ATNC Respiratory: Decreased Breath Sounds, s/p facemask Gastrointestinal: Present: obese. Absent: tenderness, distended Integumentary: warm and dry Neurologic: no focal deficit, alert and oriented x3 Psychiatric: cooperative - Vital Signs Vital signs: Vital Signs - 12hr 09/16/21 09/16/21 09/17/21 22:00 23:38 00:10 Temperature 98.5 F Pulse Rate 75 Pulse Rate [ 83 Anterior Bilateral Throughout] Respiratory 18 Rate Respiratory 20 Rate [Anterior Bilateral Throughout] Blood Pressure 164/78 O2 Sat by Pulse 98 Oximetry 09/17/21 09/17/21 09/17/21 04:00 04:17 06:00 Temperature 97.5 F L Pulse Rate 77 86 Pulse Rate [ Anterior Bilateral Throughout] Respiratory 18 18 Rate Respiratory Rate [Anterior Bilateral Throughout] Blood Pressure 141/65 O2 Sat by Pulse 96 97 Oximetry 09/17/21 09/17/21 08:57 08:58 Temperature Pulse Rate Pulse Rate [ 80 Anterior Bilateral Throughout] Respiratory Rate Respiratory 18 Rate [Anterior Bilateral Throughout] Blood Pressure O2 Sat by Pulse 95 Oximetry - Lab 09/15/21 06:44 09/16/21 05:37 Most recent lab results Calcium 9.3 mg/dL (8.4-10.2) 09/16/21 05:37 Medications & Allergies - Medications Allergies/Adverse Reactions: Allergies codeine Allergy (Verified 09/14/21 20:22) Itching Home Medications: Home Medications Medication Instructions Recorded Confirmed Last Taken Type ALPRAZolam [Xanax TAB] 0.5 mg PO BID PRN 09/15/21 09/15/21 Unknown History Albuterol Mdi (or & Nicu Only) 2 puff IH QID PRN 09/15/21 09/15/21 Unknown History [ProAir HFA Inhaler] Albuterol Sulfate [Albuterol 0.63% 0.63 mg IH DAILY 09/15/21 09/15/21 Unknown History NEBS] Budesonide/Formoterol Fumarate 10.2 gm IH BID 09/15/21 09/15/21 Unknown History [Symbicort 160-4.5 Mcg Inhaler] Metoprolol [Lopressor] 25 mg PO DAILY 09/15/21 09/15/21 Unknown History amLODIPine 5 mg PO DAILY 09/15/21 09/15/21 Unknown History Active Medications: Generic Name Dose Route Start Last Admin Trade Name Freq PRN Reason Stop Dose Admin Acetaminophen 650 mg 09/14/21 20:08 09/16/21 21:22 Acetaminophen 325 Mg Tab PO 650 mg Q4H PRN Administration Pain MILD(1-3)/Fever >100.5/BURTON Albuterol 2.5 mg 09/15/21 13:16 09/17/21 08:58 Albuterol 2.5 Mg/3 Ml Nebu IH 2.5 mg Q4HRT PRN Administration Shortness Of Breath Alprazolam 0.25 mg 09/15/21 13:16 09/16/21 23:34 Alprazolam 0.25 Mg Tab PO 0.25 mg Q8H PRN Administration Anxiety Heparin Sodium (Porcine) 5,000 unit 09/14/21 22:00 09/16/21 21:23 Heparin 5,000 Unit/1 Ml Vial SUB-Q 5,000 unit Q12HR NINA Administration Sodium Chloride 100 mls @ 999 mls/hr 09/14/21 16:46 Nacl 0.9% IV SRI PRN Hypotension Insulin Human Lispro 0 unit 09/15/21 07:30 09/16/21 21:09 Insulin Lispro 100 Unit/Ml SUB-Q Not Given ACHS NINA Protocol Metoclopramide HCl 10 mg 09/14/21 20:08 Metoclopramide 10 Mg/2 Ml Inj IV Q6H PRN Nausea And Vomiting Morphine Sulfate 2 mg 09/14/21 20:08 Morphine 2 Mg/1 Ml Inj IV Q4H PRN Pain, Moderate (4-6) Ondansetron HCl 4 mg 09/14/21 20:08 Ondansetron 4 Mg/2 Ml Inj IV Q8H PRN Nausea And Vomiting Oxycodone/Acetaminophen 1 tab 09/14/21 20:08 09/16/21 23:34 Oxycodone /Acetaminophen 5-325mg Tab PO 1 tab Q6H PRN Administration Pain, Moderate (4-6) Sodium Chloride 10 ml 09/14/21 22:00 09/16/21 21:23 Sodium Chloride 0.9% 10 Ml Flush Syringe IV Not Given BID NINA Sodium Chloride 10 ml 09/14/21 20:08 Sodium Chloride 0.9% 10 Ml Flush Syringe IV PRN PRN LINE FLUSH
[2021-09-17] MEDS: HEPARIN 5,000 UNIT/1 ML VIAL SUB-Q SCH ×2 (09:57→23:09)
[2021-09-17] MEDS: oxyCODONE /ACETAMINOPHEN 5-325MG TAB PO PRN (09:58)
[2021-09-17] MEDS: ALPRAZolam 0.25 MG TAB PO PRN (09:59)
[2021-09-17] MEDS: INSULIN LISPRO 100 UNIT/ML SUB-Q SCH ×3 (10:57→23:15)
--- NOTE | 2021-09-17 19:45 | Progress Note ---
Assessment and Plan - Patient Problems (1) Acute respiratory failure with hypoxia Current Visit: Yes Status: Acute Plan to address problem: Resolved, continue current care. Outpatient pulmonary follow-up for sleep study. (2) End-stage renal disease on hemodialysis Current Visit: Yes Status: Acute Plan to address problem: Nephrology clinic consulted. Dialysis as per renal team. (3) Obesity hypoventilation syndrome Current Visit: Yes Status: Acute Plan to address problem: Increase physical activity discharge, outpatient pulmonary follow-up for sleep study. (4) Diabetes Current Visit: Yes Status: Acute Plan to address problem: Consistent carbohydrate diet, Accu-Chek, insulin protocol, hypoglycemia protocol. (5) DVT prophylaxis Current Visit: Yes Status: Acute Plan to address problem: SCD to bilateral lower extremities while in bed (6) Advance care planning Current Visit: Yes Status: Acute Plan to address problem: Disease education conducted, care plan discussed, diagnosis discussed, prognosis discussed, patient is full code. Patient knowledges understanding agreement with care plan, +30 minutes. History Interval history: 55-year-old female hospital day 4 with acute hypoxemic respiratory failure secondary to COPD exacerbation, end-stage renal disease pending arrangement of outpatient dialysis. Discharge planning in a.m. upon arrangement of outpatient dialysis. Case management consulted. No reported nursing events. Patient denies pain. Hospitalist Physical - Constitutional Vitals: Temp Pulse Resp BP Pulse Ox 97.5 F L 86 18 141/65 98 09/17/21 04:17 09/17/21 14:00 09/17/21 08:58 09/17/21 04:17 09/17/21 16:00 General appearance: Present: no acute distress, well-nourished, obese - EENT Eyes: Present: PERRL ENT: hearing intact - Neck Neck: Present: supple - Respiratory Respiratory effort: normal Respiratory: bilateral: diminished - Cardiovascular Rhythm: regular Heart Sounds: Present: S1 & S2 - Extremities Extremities: no ischemia Peripheral Pulses: within normal limits - Abdominal General gastrointestinal: soft, non-tender, non-distended - Integumentary Integumentary: Present: clear, dry - Psychiatric Psychiatric: cooperative - Neurologic Neurologic: CNII-XII intact HEART Score - HEART Score Age: 45-65 Risk factors: > 3 risk factors or hx of atherosclerotic disease Troponin: 1-3x normal limit - Critical Actions Critical Actions: 4-6 pts:12-16.6% risk of adverse cardiac event. Should be admitted Results - Labs CBC & Chem 7: 09/15/21 06:44 09/16/21 05:37 Labs: Laboratory Last Values WBC 4.6 K/mm3 (4.5-11.0) 09/15/21 06:44 RBC 3.05 M/mm3 (3.65-5.03) L 09/15/21 06:44 Hgb 9.0 gm/dl (10.1-14.3) L 09/15/21 06:44 Hct 29.4 % (30.3-42.9) L 09/15/21 06:44 MCV 96 fl (79-97) 09/15/21 06:44 MCH 29 pg (28-32) 09/15/21 06:44 MCHC 31 % (30-34) 09/15/21 06:44 RDW 14.7 % (13.2-15.2) 09/15/21 06:44 Plt Count 255 K/mm3 (140-440) 09/15/21 06:44 Lymph % (Auto) 24.3 % (13.4-35.0) 09/15/21 06:44 Sherman % (Auto) 10.1 % (0.0-7.3) H 09/15/21 06:44 Eos % (Auto) 5.5 % (0.0-4.3) H 09/15/21 06:44 Baso % (Auto) 0.7 % (0.0-1.8) 09/15/21 06:44 Lymph # (Auto) 1.1 K/mm3 (1.2-5.4) L 09/15/21 06:44 Sherman # (Auto) 0.5 K/mm3 (0.0-0.8) 09/15/21 06:44 Eos # (Auto) 0.3 K/mm3 (0.0-0.4) 09/15/21 06:44 Baso # (Auto) 0.0 K/mm3 (0.0-0.1) 09/15/21 06:44 Seg Neutrophils % 59.4 % (40.0-70.0) 09/15/21 06:44 Seg Neutrophils # 2.7 K/mm3 (1.8-7.7) 09/15/21 06:44 Sodium 140 mmol/L (137-145) 09/16/21 05:37 Potassium 5.0 mmol/L (3.6-5.0) 09/16/21 05:37 Chloride 98.1 mmol/L (98-107) 09/16/21 05:37 Carbon Dioxide 23 mmol/L (22-30) 09/16/21 05:37 Anion Gap 24 mmol/L 09/16/21 05:37 BUN 62 mg/dL (7-17) H 09/16/21 05:37 Creatinine 13.5 mg/dL (0.6-1.2) H 09/16/21 05:37 Estimated GFR 3 ml/min 09/16/21 05:37 BUN/Creatinine Ratio 5 % 09/16/21 05:37 Glucose 91 mg/dL (65-100) 09/16/21 05:37 POC Glucose 128 mg/dL (70-105) H 09/17/21 11:16 Calcium 9.3 mg/dL (8.4-10.2) 09/16/21 05:37 Total Bilirubin 0.40 mg/dL (0.1-1.2) 09/15/21 06:44 AST 13 units/L (5-40) 09/15/21 06:44 ALT 9 units/L (7-56) 09/15/21 06:44 Alkaline Phosphatase 62 units/L (35-129) 09/15/21 06:44 NT-Pro-B Natriuret Pep 8056 pg/mL (0-900) H 09/14/21 13:48 Total Protein 7.2 g/dL (6.3-8.2) 09/15/21 06:44 Albumin 4.1 g/dL (3.9-5) 09/15/21 06:44 Albumin/Globulin Ratio 1.3 % 09/15/21 06:44 Hepatitis A IgM Ab Non-reactive (NonReactive) 09/14/21 19:42 Hep Bs Antigen Non-reactive (Negative) 09/14/21 19:42 Hep B Core IgM Ab Non-reactive (NonReactive) 09/14/21 19:42 Hepatitis C Antibody Non-reactive (NonReactive) 09/14/21 19:42 Smith/IV: Voiding Method Bedside Commode Active Medications - Current Medications Current Medications: Generic Name Dose Route Start Last Admin Trade Name Freq PRN Reason Stop Dose Admin Acetaminophen 650 mg 09/14/21 20:08 09/16/21 21:22 Acetaminophen 325 Mg Tab PO 650 mg Q4H PRN Administration Pain MILD(1-3)/Fever >100.5/[place] Albuterol 2.5 mg 09/15/21 13:16 09/17/21 08:58 Albuterol 2.5 Mg/3 Ml Nebu IH 2.5 mg Q4HRT PRN Administration Shortness Of Breath Alprazolam 0.25 mg 09/15/21 13:16 09/17/21 09:59 Alprazolam 0.25 Mg Tab PO 0.25 mg Q8H PRN Administration Anxiety Heparin Sodium (Porcine) 5,000 unit 09/14/21 22:00 09/17/21 09:57 Heparin 5,000 Unit/1 Ml Vial SUB-Q 5,000 unit Q12HR NINA Administration Sodium Chloride 100 mls @ 999 mls/hr 09/14/21 16:46 Nacl 0.9% IV SRI PRN Hypotension Insulin Human Lispro 0 unit 09/15/21 07:30 09/17/21 18:32 Insulin Lispro 100 Unit/Ml SUB-Q Not Given ACHS [facility] Protocol Metoclopramide HCl 10 mg 09/14/21 20:08 Metoclopramide 10 Mg/2 Ml Inj IV Q6H PRN Nausea And Vomiting Morphine Sulfate 2 mg 09/14/21 20:08 Morphine 2 Mg/1 Ml Inj IV Q4H PRN Pain, Moderate (4-6) Ondansetron HCl 4 mg 09/14/21 20:08 Ondansetron 4 Mg/2 Ml Inj IV Q8H PRN Nausea And Vomiting Oxycodone/Acetaminophen 1 tab 09/14/21 20:08 09/17/21 09:58 Oxycodone /Acetaminophen 5-325mg Tab PO 1 tab Q6H PRN Administration Pain, Moderate (4-6) Sodium Chloride 10 ml 09/14/21 22:00 09/17/21 09:58 Sodium Chloride 0.9% 10 Ml Flush Syringe IV 10 ml BID NINA Administration Sodium Chloride 10 ml 09/14/21 20:08 Sodium Chloride 0.9% 10 Ml Flush Syringe IV PRN PRN LINE FLUSH
[2021-09-17] MEDS ORDERED: diphenhydrAMINE 50 MG/ML VIAL IV PRN (21:20)
[2021-09-17] MEDS: diphenhydrAMINE 25 MG CAP PO PRN (23:05)
[2021-09-17] MEDS: ACETAMINOPHEN 325 MG TAB PO PRN (23:08)
[2021-09-18] MEDS: ACETAMINOPHEN 325 MG TAB PO PRN ×2 (07:03→22:52)
[2021-09-18] MEDS: ALPRAZolam 0.25 MG TAB PO PRN ×2 (07:03→17:23)
[2021-09-18] MEDS: INSULIN LISPRO 100 UNIT/ML SUB-Q SCH ×4 (09:28→23:00)
--- NOTE | 2021-09-18 09:33 | Progress Note ---
Assessment and Plan Impression: * End stage renal disease * Hyperkalemia * Uremia * Hypertension * Anemia secondary to ESRD * Secondary hyperparathyroidism Plan: * continue HD MWF while in house for regular toxin/electrolyte/volume management * plan for HD tomorrow, no clinical indication for HD today * Renal diet * Epogen TIW prn * Bp stable, UF as tolerated * Dose medications for renal function * In order to ensure a safe discharge, recommend that patient remain ho spitalized to secure outpatient dialysis clinic * CM consult for outpatient HD clinic placement, appreciated, placed at [facility] Subjective Date of service: 09/18/21 Principal diagnosis: Acute respiratory failure with hypoxia, pulmonary edema Interval history: Denies any acute issues this AM. Breathing stable. No issues with dialysis yesterday. Objective - Exam Narrative Exam: General appearance: well-developed, well-nourished EENT: ATNC Respiratory: Decreased Breath Sounds, s/p facemask Gastrointestinal: Present: obese. Absent: tenderness, distended Integumentary: warm and dry Neurologic: no focal deficit, alert and oriented x3 Psychiatric: cooperative - Vital Signs Vital signs: Vital Signs - 12hr 09/17/21 09/17/21 09/18/21 21:56 22:00 00:48 Pulse Rate 85 77 Respiratory 18 Rate O2 Sat by Pulse 96 96 Oximetry 09/18/21 09/18/21 02:34 06:00 Pulse Rate 77 Respiratory Rate O2 Sat by Pulse 96 Oximetry - Lab 09/15/21 06:44 09/16/21 05:37 Most recent lab results Calcium 9.3 mg/dL (8.4-10.2) 09/16/21 05:37 Medications & Allergies - Medications Allergies/Adverse Reactions: Allergies codeine Allergy (Verified 09/18/21 12:40) Itching Home Medications: Home Medications Medication Instructions Recorded Confirmed Last Taken Type Albuterol Mdi (or & Nicu Only) 2 puff IH QID PRN 09/15/21 09/18/21 Unknown History [ProAir HFA Inhaler] Budesonide/Formoterol Fumarate 10.2 gm IH BID 09/15/21 09/18/21 Unknown History [Symbicort 160-4.5 Mcg Inhaler] Metoprolol [Lopressor] 25 mg PO DAILY 09/15/21 09/18/21 Unknown History amLODIPine 5 mg PO DAILY 09/15/21 09/18/21 Unknown History ALBUTEROL NEB's [Proventil 0.083% 2.5 mg IH Q4H PRN 09/18/21 09/18/21 Unknown History NEBS] ALPRAZolam [Xanax TAB] 0.5 mg PO HS PRN 09/18/21 09/18/21 Unknown History Insulin Aspart Prot/Insuln Asp 20 unit SQ BIDAC 09/18/21 09/18/21 Unknown History [Insulin Aspart Prot-Insuln Asp] Tiotropium [place] [Spiriva] 1 puff IH QDAY 09/18/21 09/18/21 Unknown History Active Medications: Generic Name Dose Route Start Last Admin Trade Name Freq PRN Reason Stop Dose Admin Acetaminophen 650 mg 09/14/21 20:08 09/18/21 07:03 Acetaminophen 325 Mg Tab PO 650 mg Q4H PRN Administration Pain MILD(1-3)/Fever >100.5/[place] Albuterol 2.5 mg 09/15/21 13:16 09/17/21 08:58 Albuterol 2.5 Mg/3 Ml Nebu IH 2.5 mg Q4HRT PRN Administration Shortness Of Breath Alprazolam 0.25 mg 09/15/21 13:16 09/18/21 07:03 Alprazolam 0.25 Mg Tab PO 0.25 mg Q8H PRN Administration Anxiety Diphenhydramine HCl 25 mg 09/17/21 22:03 09/17/21 23:05 Diphenhydramine 25 Mg Cap PO 25 mg Q6H PRN Administration Itching Heparin Sodium (Porcine) 5,000 unit 09/14/21 22:00 09/17/21 23:09 Heparin 5,000 Unit/1 Ml Vial SUB-Q 5,000 unit Q12HR NINA Administration Sodium Chloride 100 mls @ 999 mls/hr 09/14/21 16:46 Nacl 0.9% IV SRI PRN Hypotension Insulin Human Lispro 0 unit 09/15/21 07:30 09/18/21 09:28 Insulin Lispro 100 Unit/Ml SUB-Q Not Given ACHS NINA Protocol Metoclopramide HCl 10 mg 09/14/21 20:08 Metoclopramide 10 Mg/2 Ml Inj IV Q6H PRN Nausea And Vomiting Morphine Sulfate 2 mg 09/14/21 20:08 Morphine 2 Mg/1 Ml Inj IV Q4H PRN Pain, Moderate (4-6) Ondansetron HCl 4 mg 09/14/21 20:08 Ondansetron 4 Mg/2 Ml Inj IV Q8H PRN Nausea And Vomiting Oxycodone/Acetaminophen 1 tab 09/14/21 20:08 09/17/21 09:58 Oxycodone /Acetaminophen 5-325mg Tab PO 1 tab Q6H PRN Administration Pain, Moderate (4-6) Sodium Chloride 10 ml 09/14/21 22:00 09/17/21 23:15 Sodium Chloride 0.9% 10 Ml Flush Syringe IV Not Given BID NINA Sodium Chloride 10 ml 09/14/21 20:08 Sodium Chloride 0.9% 10 Ml Flush Syringe IV PRN PRN LINE FLUSH
[2021-09-18] MEDS: ALBUTEROL 2.5 MG/3 ML NEBU IH PRN (09:50)
[2021-09-18] MEDS: HEPARIN 5,000 UNIT/1 ML VIAL SUB-Q SCH ×2 (09:58→22:51)
[2021-09-18] MEDS: diphenhydrAMINE 25 MG CAP PO PRN ×2 (13:35→22:51)
[2021-09-18] MEDS: oxyCODONE /ACETAMINOPHEN 5-325MG TAB PO PRN (17:23)
--- NOTE | 2021-09-18 20:34 | Progress Note ---
Assessment and Plan - Patient Problems (1) Acute respiratory failure with hypoxia Current Visit: Yes Status: Acute Plan to address problem: Resolved, continue current care. Outpatient pulmonary follow-up for sleep study. (2) End-stage renal disease on hemodialysis Current Visit: Yes Status: Acute Plan to address problem: Nephrology clinic consulted. Dialysis as per renal team. (3) Obesity hypoventilation syndrome Current Visit: Yes Status: Acute Plan to address problem: Increase physical activity discharge, outpatient pulmonary follow-up for sleep study. (4) Diabetes Current Visit: Yes Status: Acute Plan to address problem: Consistent carbohydrate diet, Accu-Chek, insulin protocol, hypoglycemia protocol. (5) DVT prophylaxis Current Visit: Yes Status: Acute Plan to address problem: SCD to bilateral lower extremities while in bed (6) Advance care planning Current Visit: Yes Status: Acute Plan to address problem: Disease education conducted, care plan discussed, diagnosis discussed, prognosis discussed, patient is full code. Patient knowledges understanding agreement with care plan, +30 minutes. History Interval history: 55-year-old female hospital day 4 with acute hypoxemic respiratory failure secondary to COPD exacerbation, end-stage renal disease pending arrangement of outpatient dialysis. Discharge planning in a.m. upon arrangement of outpatient dialysis. Case management consulted. No reported nursing events. Patient denies pain. Hospitalist Physical - Constitutional Vitals: Temp Pulse Resp BP Pulse Ox 98.3 F 75 18 144/57 96 09/18/21 16:38 09/18/21 16:38 09/18/21 09:50 09/18/21 16:38 09/18/21 16:38 General appearance: Present: no acute distress, well-nourished, obese - EENT Eyes: Present: PERRL, EOM intact ENT: hearing intact - Neck Neck: Present: supple - Respiratory Respiratory: bilateral: diminished - Cardiovascular Rhythm: regular Heart Sounds: Present: S1 & S2 - Extremities Extremities: no ischemia Peripheral Pulses: within normal limits - Abdominal General gastrointestinal: soft, non-tender, non-distended - Integumentary Integumentary: Present: clear, dry - Psychiatric Psychiatric: cooperative - Neurologic Neurologic: CNII-XII intact HEART Score - HEART Score Age: 45-65 Risk factors: > 3 risk factors or hx of atherosclerotic disease Troponin: 1-3x normal limit - Critical Actions Critical Actions: 4-6 pts:12-16.6% risk of adverse cardiac event. Should be admitted Results - Labs CBC & Chem 7: 09/15/21 06:44 09/16/21 05:37 Labs: Laboratory Last Values WBC 4.6 K/mm3 (4.5-11.0) 09/15/21 06:44 RBC 3.05 M/mm3 (3.65-5.03) L 09/15/21 06:44 Hgb 9.0 gm/dl (10.1-14.3) L 09/15/21 06:44 Hct 29.4 % (30.3-42.9) L 09/15/21 06:44 MCV 96 fl (79-97) 09/15/21 06:44 MCH 29 pg (28-32) 09/15/21 06:44 MCHC 31 % (30-34) 09/15/21 06:44 RDW 14.7 % (13.2-15.2) 09/15/21 06:44 Plt Count 255 K/mm3 (140-440) 09/15/21 06:44 Lymph % (Auto) 24.3 % (13.4-35.0) 09/15/21 06:44 [place] % (Auto) 10.1 % (0.0-7.3) H 09/15/21 06:44 Eos % (Auto) 5.5 % (0.0-4.3) H 09/15/21 06:44 Baso % (Auto) 0.7 % (0.0-1.8) 09/15/21 06:44 Lymph # (Auto) 1.1 K/mm3 (1.2-5.4) L 09/15/21 06:44 [place] # (Auto) 0.5 K/mm3 (0.0-0.8) 09/15/21 06:44 Eos # (Auto) 0.3 K/mm3 (0.0-0.4) 09/15/21 06:44 Baso # (Auto) 0.0 K/mm3 (0.0-0.1) 09/15/21 06:44 Seg Neutrophils % 59.4 % (40.0-70.0) 09/15/21 06:44 Seg Neutrophils # 2.7 K/mm3 (1.8-7.7) 09/15/21 06:44 Sodium 140 mmol/L (137-145) 09/16/21 05:37 Potassium 5.0 mmol/L (3.6-5.0) 09/16/21 05:37 Chloride 98.1 mmol/L (98-107) 09/16/21 05:37 Carbon Dioxide 23 mmol/L (22-30) 09/16/21 05:37 Anion Gap 24 mmol/L 09/16/21 05:37 BUN 62 mg/dL (7-17) H 09/16/21 05:37 Creatinine 13.5 mg/dL (0.6-1.2) H 09/16/21 05:37 Estimated GFR 3 ml/min 09/16/21 05:37 BUN/Creatinine Ratio 5 % 09/16/21 05:37 Glucose 91 mg/dL (65-100) 09/16/21 05:37 POC Glucose 114 mg/dL (70-105) H 09/18/21 16:48 Calcium 9.3 mg/dL (8.4-10.2) 09/16/21 05:37 Total Bilirubin 0.40 mg/dL (0.1-1.2) 09/15/21 06:44 AST 13 units/L (5-40) 09/15/21 06:44 ALT 9 units/L (7-56) 09/15/21 06:44 Alkaline Phosphatase 62 units/L (35-129) 09/15/21 06:44 NT-Pro-B Natriuret Pep 8056 pg/mL (0-900) H 09/14/21 13:48 Total Protein 7.2 g/dL (6.3-8.2) 09/15/21 06:44 Albumin 4.1 g/dL (3.9-5) 09/15/21 06:44 Albumin/Globulin Ratio 1.3 % 09/15/21 06:44 SARS-CoV-2 (PCR) Negative (Negative) 09/18/21 13:10 Hepatitis A IgM Ab Non-reactive (NonReactive) 09/14/21 19:42 Hep Bs Antigen Non-reactive (Negative) 09/14/21 19:42 Hep B Core IgM Ab Non-reactive (NonReactive) 09/14/21 19:42 Hepatitis C Antibody Non-reactive (NonReactive) 09/14/21 19:42 [place]/IV: Voiding Method External Female Catheter Active Medications - Current Medications Current Medications: Generic Name Dose Route Start Last Admin Trade Name Freq PRN Reason Stop Dose Admin Acetaminophen 650 mg 09/14/21 20:08 09/18/21 07:03 Acetaminophen 325 Mg Tab PO 650 mg Q4H PRN Administration Pain MILD(1-3)/Fever >100.5/[place] Albuterol 2.5 mg 09/15/21 13:16 09/18/21 09:50 Albuterol 2.5 Mg/3 Ml Nebu IH 2.5 mg Q4HRT PRN Administration Shortness Of Breath Alprazolam 0.25 mg 09/15/21 13:16 09/18/21 17:23 Alprazolam 0.25 Mg Tab PO 0.25 mg Q8H PRN Administration Anxiety Diphenhydramine HCl 25 mg 09/17/21 22:03 09/18/21 13:35 Diphenhydramine 25 Mg Cap PO 25 mg Q6H PRN Administration Itching Heparin Sodium (Porcine) 5,000 unit 09/14/21 22:00 09/18/21 09:58 Heparin 5,000 Unit/1 Ml Vial SUB-Q 5,000 unit Q12HR NINA Administration Sodium Chloride 100 mls @ 999 mls/hr 09/14/21 16:46 Nacl 0.9% IV SRI PRN Hypotension Insulin Human Lispro 0 unit 09/15/21 07:30 09/18/21 17:22 Insulin Lispro 100 Unit/Ml SUB-Q Not Given ACHS NINA Protocol Metoclopramide HCl 10 mg 09/14/21 20:08 Metoclopramide 10 Mg/2 Ml Inj IV Q6H PRN Nausea And Vomiting Morphine Sulfate 2 mg 09/14/21 20:08 Morphine 2 Mg/1 Ml Inj IV Q4H PRN Pain, Moderate (4-6) Ondansetron HCl 4 mg 09/14/21 20:08 Ondansetron 4 Mg/2 Ml Inj IV Q8H PRN Nausea And Vomiting Oxycodone/Acetaminophen 1 tab 09/14/21 20:08 09/18/21 17:23 Oxycodone /Acetaminophen 5-325mg Tab PO 1 tab Q6H PRN Administration Pain, Moderate (4-6) Sodium Chloride 10 ml 09/14/21 22:00 09/18/21 09:58 Sodium Chloride 0.9% 10 Ml Flush Syringe IV 10 ml BID NINA Administration Sodium Chloride 10 ml 09/14/21 20:08 Sodium Chloride 0.9% 10 Ml Flush Syringe IV PRN PRN LINE FLUSH
--- NOTE | 2021-09-19 09:28 | Progress Note ---
Assessment and Plan Impression: * End stage renal disease * Hyperkalemia * Uremia * Hypertension * Anemia secondary to ESRD * Secondary hyperparathyroidism Plan: * continue HD MWF while in house for regular toxin/electrolyte/volume management, due today * Renal diet * Epogen TIW prn * Bp stable, UF as tolerated * Dose medications for renal function * CM consult for outpatient HD clinic placement, appreciated, placed at [facility] * Ok to discharge from renal standpoint given HD placement Subjective Date of service: 09/19/21 Principal diagnosis: Acute respiratory failure with hypoxia, pulmonary edema Interval history: Denies any acute issues this AM. Breathing stable. About to go for dialysis this AM. States ready to leave hospital today Objective - Exam Narrative Exam: General appearance: well-developed, well-nourished EENT: ATNC Respiratory: Decreased Breath Sounds, s/p facemask Gastrointestinal: Present: obese. Absent: tenderness, distended Integumentary: warm and dry Neurologic: no focal deficit, alert and oriented x3 Psychiatric: cooperative - Vital Signs Vital signs: Vital Signs - 12hr 09/18/21 09/18/21 09/19/21 22:00 23:32 02:15 Temperature 97.8 F Pulse Rate 79 80 Respiratory 18 Rate Blood Pressure 150/70 O2 Sat by Pulse 96 96 98 Oximetry 09/19/21 09/19/21 09/19/21 03:34 03:40 04:40 Temperature 97.5 F L Pulse Rate 92 H 89 86 Respiratory 20 20 Rate Blood Pressure 137/69 O2 Sat by Pulse 97 97 Oximetry 09/19/21 07:43 Temperature Pulse Rate Respiratory Rate Blood Pressure O2 Sat by Pulse 97 Oximetry - Lab 09/15/21 06:44 09/16/21 05:37 Most recent lab results Calcium 9.3 mg/dL (8.4-10.2) 09/16/21 05:37 Medications & Allergies - Medications Allergies/Adverse Reactions: Allergies codeine Allergy (Verified 09/18/21 12:40) Itching Home Medications: Home Medications Medication Instructions Recorded Confirmed Last Taken Type Albuterol Mdi (or & Nicu Only) 2 puff IH QID PRN 09/15/21 09/18/21 Unknown History [ProAir HFA Inhaler] Budesonide/Formoterol Fumarate 10.2 gm IH BID 09/15/21 09/18/21 Unknown History [Symbicort 160-4.5 Mcg Inhaler] Metoprolol [Lopressor] 25 mg PO DAILY 09/15/21 09/18/21 Unknown History amLODIPine 5 mg PO DAILY 09/15/21 09/18/21 Unknown History ALBUTEROL NEB's [Proventil 0.083% 2.5 mg IH Q4H PRN 09/18/21 09/18/21 Unknown History NEBS] ALPRAZolam [Xanax TAB] 0.5 mg PO HS PRN 09/18/21 09/18/21 Unknown History Insulin Aspart Prot/Insuln Asp 20 unit SQ BIDAC 09/18/21 09/18/21 Unknown History [Insulin Aspart Prot-Insuln Asp] Tiotropium [place] [Spiriva] 1 puff IH QDAY 09/18/21 09/18/21 Unknown History Active Medications: Generic Name Dose Route Start Last Admin Trade Name Freq PRN Reason Stop Dose Admin Acetaminophen 650 mg 09/14/21 20:08 09/18/21 22:52 Acetaminophen 325 Mg Tab PO 650 mg Q4H PRN Administration Pain MILD(1-3)/Fever >100.5/[place] Albuterol 2.5 mg 09/15/21 13:16 09/18/21 09:50 Albuterol 2.5 Mg/3 Ml Nebu IH 2.5 mg Q4HRT PRN Administration Shortness Of Breath Alprazolam 0.25 mg 09/15/21 13:16 09/18/21 17:23 Alprazolam 0.25 Mg Tab PO 0.25 mg Q8H PRN Administration Anxiety Diphenhydramine HCl 25 mg 09/17/21 22:03 09/18/21 22:51 Diphenhydramine 25 Mg Cap PO 25 mg Q6H PRN Administration Itching Heparin Sodium (Porcine) 5,000 unit 09/14/21 22:00 09/18/21 22:51 Heparin 5,000 Unit/1 Ml Vial SUB-Q 5,000 unit Q12HR NINA Administration Sodium Chloride 100 mls @ 999 mls/hr 09/14/21 16:46 Nacl 0.9% IV SRI PRN Hypotension Insulin Human Lispro 0 unit 09/15/21 07:30 09/18/21 23:00 Insulin Lispro 100 Unit/Ml SUB-Q Not Given ACHS NINA Protocol Metoclopramide HCl 10 mg 09/14/21 20:08 Metoclopramide 10 Mg/2 Ml Inj IV Q6H PRN Nausea And Vomiting Morphine Sulfate 2 mg 09/14/21 20:08 Morphine 2 Mg/1 Ml Inj IV Q4H PRN Pain, Moderate (4-6) Ondansetron HCl 4 mg 09/14/21 20:08 Ondansetron 4 Mg/2 Ml Inj IV Q8H PRN Nausea And Vomiting Oxycodone/Acetaminophen 1 tab 09/14/21 20:08 09/18/21 17:23 Oxycodone /Acetaminophen 5-325mg Tab PO 1 tab Q6H PRN Administration Pain, Moderate (4-6) Sodium Chloride 10 ml 09/14/21 22:00 09/18/21 23:00 Sodium Chloride 0.9% 10 Ml Flush Syringe IV 10 ml BID NINA Administration Sodium Chloride 10 ml 09/14/21 20:08 Sodium Chloride 0.9% 10 Ml Flush Syringe IV PRN PRN LINE FLUSH
--- NOTE | 2021-09-19 11:03 | Discharge Summary ---
Providers - Providers Date of Admission: 09/14/21 20:08 Attending physician: CHIQUI SOLORZANO 09/14/21 20:08 Consult to Physician [CONS] Routine Comment: Consulting Provider: SHAYLA COLLAZO Physician Instructions: Reason For Exam: Hypervolemia, hyperkalemia 09/15/21 13:34 Consult to Case Management [CONS] Routine Services Needed at Discharge: Other Notified:: casae associate manager Comment:: dialysis chair 09/17/21 09:10 Consult to Case Management [CONS] Routine Services Needed at Discharge: Home Health Services Notified:: RAIL CAR REPAIRER Comment:: Hemodialysis chair Additional Physician Instructions: Patient needs hemodialysis chair Patient is stable for discharge Primary care physician: PATIENT ACCOUNTS COORDINATOR Hospitalization Condition: Stable Disposition: 30 STILL A PATIENT - Discharge Diagnoses (1) Acute respiratory failure with hypoxia Status: Acute (2) End-stage renal disease on hemodialysis Status: Acute (3) Obesity hypoventilation syndrome Status: Acute (4) Diabetes Status: Acute (5) DVT prophylaxis Status: Acute (6) Advance care planning Status: Acute Exam - Constitutional Vitals: Temp Pulse Resp BP Pulse Ox 97.7 F 76 19 154/74 98 09/19/21 09:40 09/19/21 10:00 09/19/21 09:40 09/19/21 10:00 09/19/21 09:40 Plan Follow up with: ARTURO MARSH MD [Primary Care Provider] - 7 Days
[2021-09-19 13:44] VITALS: BP 155/78
== END 2021-09-19 16:00 | disposition home or self-care (01) | DRG 189 ==
LOC: ED 12:34 → 4A 20:08
PROVIDERS: ADMIT Internal Medicine; ATTEND Internal Medicine
PROC: 5A1D70Z Performance of Urinary Filtration, Intermittent, Less than 6 Hours Per Day (ICD-10-PCS; principal; 2021-09-14)
PROC: 5A1D70Z Performance of Urinary Filtration, Intermittent, Less than 6 Hours Per Day (ICD-10-PCS; 2021-09-17)
PROC: 5A09457 Assistance with Respiratory Ventilation, 24-96 Consecutive Hours, Continuous Positive Airway Pressure (ICD-10-PCS; 2021-09-18)
PROC: 5A1D70Z Performance of Urinary Filtration, Intermittent, Less than 6 Hours Per Day (ICD-10-PCS; 2021-09-19)
DX: J96.01 Acute respiratory failure with hypoxia (principal); J81.0 Acute pulmonary edema; N18.6 End stage renal disease; Z20.822 Contact with and (suspected) exposure to COVID-19; D63.1 Anemia in chronic kidney disease; Z99.2 Dependence on renal dialysis; E87.5 Hyperkalemia; J44.9 Chronic obstructive pulmonary disease, unspecified; I12.0 Hypertensive chronic kidney disease with stage 5 chronic kidney disease or end stage renal disease; F41.9 Anxiety disorder, unspecified; E87.70 Fluid overload, unspecified; E11.22 Type 2 diabetes mellitus with diabetic chronic kidney disease; N25.81 Secondary hyperparathyroidism of renal origin; E66.2 Morbid (severe) obesity with alveolar hypoventilation; Z68.43 Body mass index [BMI] 50.0-59.9, adult; Z82.49 Family history of ischemic heart disease and other diseases of the circulatory system; Z88.6 Allergy status to analgesic agent
CPT/HCPCS: 36415; 71045; 80048; 80053; 80074; 82962; 83880; 84132; 85025; 93005; 94640; 94660; 94760; G0378; J3490; Q9967; J0610; J1644; J1815; U0003

== ENCOUNTER 2021-10-29 09:18 | Inpatient (IN) | payer MEDICAID ==
[2021-10-29] MEDS ORDERED: FUROSEMIDE 40 MG/4 ML INJ IV ONE (11:31)
[2021-10-29] MEDS ORDERED: LORazepam 2 MG/ML VIAL IV ONE ×2 (11:32→14:14)
--- NOTE | 2021-10-29 11:38 | Emergency Department Report ---
<MARK PINEDA - Last Filed: 10/29/21 14:17> ED Shortness of Breath HPI - General Chief Complaint: Dyspnea/Respdistress Stated Complaint: SOB Time Seen by Provider: 10/29/21 11:14 - Related Data Home Medications Medication Instructions Recorded Confirmed Last Taken Albuterol Mdi (or & Nicu Only) 2 puff IH QID PRN 09/15/21 09/18/21 Unknown [ProAir HFA Inhaler] Budesonide/Formoterol Fumarate 2 inhalation IH BID 09/15/21 09/19/21 Unknown [Symbicort 160-4.5 Mcg Inhaler] Metoprolol [Lopressor TAB] 25 mg PO DAILY 09/15/21 09/18/21 Unknown amLODIPine 5 mg PO DAILY 09/15/21 09/18/21 Unknown ALBUTEROL NEB's [Proventil 0.083% 2.5 mg IH Q4H PRN 09/18/21 09/18/21 Unknown NEBS] ALPRAZolam [Xanax TAB] 0.5 mg PO HS PRN 09/18/21 09/18/21 Unknown Tiotropium [place] [Spiriva] 1 puff IH QDAY 09/18/21 09/18/21 Unknown Insulin Aspart Prot/Aspart(Nf) 20 units SQ BIDAC 09/19/21 09/19/21 Unknown [NovoLOG Mix 70/30 VIAL] Allergies Allergy/AdvReac Type Severity Reaction Status Date / Time codeine Allergy Itching Verified 10/29/21 13:29 ED Past Medical Hx - Medications Home Medications: Home Medications Medication Instructions Recorded Confirmed Last Taken Type Albuterol Mdi (or & Nicu Only) 2 puff IH QID PRN 09/15/21 09/18/21 Unknown History [ProAir HFA Inhaler] Budesonide/Formoterol Fumarate 2 inhalation IH BID 09/15/21 09/19/21 Unknown History [Symbicort 160-4.5 Mcg Inhaler] Metoprolol [Lopressor TAB] 25 mg PO DAILY 09/15/21 09/18/21 Unknown History amLODIPine 5 mg PO DAILY 09/15/21 09/18/21 Unknown History ALBUTEROL NEB's [Proventil 0.083% 2.5 mg IH Q4H PRN 09/18/21 09/18/21 Unknown History NEBS] ALPRAZolam [Xanax TAB] 0.5 mg PO HS PRN 09/18/21 09/18/21 Unknown History Tiotropium [place] [Spiriva] 1 puff IH QDAY 09/18/21 09/18/21 Unknown History Insulin Aspart Prot/Aspart(Nf) 20 units SQ BIDAC 09/19/21 09/19/21 Unknown History [NovoLOG Mix 70/30 VIAL] - EJ/Peripheral Line Leg R Indications: nurses unable to establis Skin Cleansed in Sterile Fashion: Yes Size: 20 Dressing Placed: Tegaderm Patient Tolerated Procedure: well Additional Comments: Nursing team unable to establish IV access. IV nurse unable to establish IV access. Patient provided consent for evaluation for IV placement. Given critical illness, need for IV access, have identified easily cannulated plump vein on the dorsal anterior aspect of the right ankle/foot. A 20-gauge IV is placed by myself with 1 attempt, no difficulty, and flushes easily. This line may be used for up to 24 hours, however, recommend definitive IV placement, midline or PICC line, if patient requires prolonged hospitalization. She does not require a central line at this time. ED Medical Decision Making - Lab Data Result diagrams: 10/29/21 11:41 10/29/21 11:41 ED Disposition Clinical Impression: Volume overload, Hyperkalemia, Acute respiratory failure Disposition: ADMITTED INPATIENT Condition: Stable <OTILIA HORNE - Last Filed: 10/29/21 14:22> ED Shortness of Breath HPI - General Source: EMS Mode of arrival: Stretcher Limitations: Physical Limitation - History of Present Illness Initial Comments: Patient is a 56-year-old female with history of ESRD on dialysis with last dialysis session being , CHF brought in by EMS with complaint of shortness of breath beginning yesterday. Placed on CPAP by EMS. She is anuric. ED Review of Systems ROS: Stated complaint: SOB Other details as noted in HPI ED Past Medical Hx - Past Medical History Hx Hypertension: Yes Hx Diabetes: Yes Hx Renal Disease: Yes (HD MWF) Hx COPD: Yes - Social History Smoking Status: Unknown if ever smoked ED Physical Exam - General Limitations: Physical Limitation General appearance: alert, obese - Head Head exam: Present: atraumatic, normocephalic - Respiratory Respiratory exam: Present: respiratory distress, rales (Bilateral rales and crackles. Patient on BiPAP) - Cardiovascular Cardiovascular Exam: Present: regular rate, normal rhythm, normal heart sounds - GI/Abdominal GI/Abdominal exam: Present: soft. Absent: distended, tenderness - Rectal Rectal exam: Present: deferred - Neurological Exam Neurological exam: Present: alert, oriented X3 - Psychiatric Psychiatric exam: Present: normal affect, normal mood - Skin Skin exam: Present: warm, dry, intact, normal color ED Course Vital Signs 10/29/21 10/29/21 10:27 11:25 Pulse Rate 78 81 Respiratory 20 27 H Rate Blood Pressure 205/86 Blood Pressure 197/100 [Left] O2 Sat by Pulse 94 97 Oximetry ED Medical Decision Making - Lab Data Result diagrams: 10/29/21 11:41 10/29/21 11:41 - Medical Decision Making Pulmonary edema noted on chest x-ray. Serum potassium is 6.5. Patient given oral Kayexalate and IV calcium gluconate. Discussed with assistant women's tennis coach Dr. Suha beach who will plan to dialyze. Will admit to hospitalist. Critical care attestation.: If time is entered above; I have spent that time in minutes in the direct care o f this critically ill patient, excluding procedure time. ED Disposition Is pt being admited?: Yes
--- NOTE | 2021-10-29 12:12 | XRay Report ---
CHEST 1 VIEW 10/29/2021 10:36 AM INDICATION / CLINICAL INFORMATION: Dyspnea. COMPARISON: 09/14/2021 FINDINGS: SUPPORT DEVICES: None. HEART / MEDIASTINUM: Stable cardiomegaly LUNGS / PLEURA: Moderate diffuse interstitial opacities, likely edema. No pneumothorax. ADDITIONAL FINDINGS: No significant additional findings. Signer Name: Miguel Angel Magaña MD Signed: 10/29/2021 12:07 PM Workstation Name: [facility]
[2021-10-29 12:40] LABS: Basophils % (Auto) 0.5 % (0.0-1.8); Eosinophils # (Auto) 0.3 K/mm3 (0.0-0.4); Eosinophils % (Auto) 3.3 % (0.0-4.3); Lymphocytes # (Auto) 1.2 K/mm3 (1.2-5.4); Lymphocytes % (Auto) 15.8 % (13.4-35.0); Mean Corpuscular HGB Conc 30 % (30-34); Mean Corpuscular Volume 100 fl (79-97); Monocytes # (Auto) 0.4 K/mm3 (0.0-0.8); Monocytes % (Auto) 5.7 % (0.0-7.3); Platelet Count 221 K/mm3 (140-440); Red Blood Count 3.51 M/mm3 (3.65-5.03)
[2021-10-29 12:55] LABS: INR 0.97 (0.87-1.13)
[2021-10-29 12:56] LABS: Partial Thromboplastin Time 33.5 Sec. (24.2-36.6)
[2021-10-29 12:57] LABS: Hematocrit 35.1 % (30.3-42.9); Hemoglobin 10.6 gm/dl (10.1-14.3)
[2021-10-29 12:59] LABS: Albumin 4.7 g/dL (3.9-5); Calcium 8.5 mg/dL (8.4-10.2)
[2021-10-29] MEDS ORDERED: CALCIUM GLUCONATE 1,000 MG in SODIUM CHLORIDE 0.9% 100 ML IV ONE (13:27)
[2021-10-29] MEDS ORDERED: SODIUM POLYSTYRENE 15 GM/60 ML ORAL LIQD PO ONE (13:27)
[2021-10-29] MEDS ORDERED: LORazepam 1 MG TAB PO ONE (14:01)
--- NOTE | 2021-10-29 14:18 | History and Physical Report ---
History of Present Illness Chief complaint: I cannot breathe History of present illness: 56 YO Female with ESRD on HD(M,W,F), HTN, DM, COPD, Noncompliance presents to ED for evaluation. Patient reports "I cannot breathe". Patient is states that she has experienced shortness of breath over the past 3 days with persistent symptoms over the same timeframe. Patient acknowledges multiple missed dialysis sessions over the past week due to inability to be transported to dialysis. Patient acknowledges shortness of breath, dyspnea on exertion as well as dyspnea at rest. EMS was notified and upon arrival the patient was found to be in distress and subsequently transported to [facility] for further care and evaluation of the aforementioned symptoms. The patient was seen and evaluated in the emergency department. All lab and imaging studies reviewed. Patient found to have a pulse oximetry of 86% on room air which is consistent with acute hypoxemic respiratory failure with concomitant fluid overload due to missed di alysis. Nephrology team consulted in ED for urgent dialysis. Patient initiated on noninvasive positive pressure ventilation with mild improvement in symptoms. Patient admitted to medical floor due to increased risk of worsening symptoms and for medical stabilization. Patient denies fever, chills, chest pain, palpitations, skin rash, recent contact, known exposure to COVID-19. Past History Past Medical History: diabetes, ESRD, hypertension Past Surgical History: Other (Dialysis access) Social history: single. denies: smoking, alcohol abuse, prescription drug abuse Family history: diabetes, hypertension Medications and Allergies Allergies Allergy/AdvReac Type Severity Reaction Status Date / Time codeine Allergy Itching Verified 10/29/21 13:29 Home Medications Medication Instructions Recorded Confirmed Last Taken Type Albuterol Mdi (or & Nicu Only) 2 puff IH QID PRN 09/15/21 09/18/21 Unknown History [ProAir HFA Inhaler] Budesonide/Formoterol Fumarate 2 inhalation IH BID 09/15/21 09/19/21 Unknown History [Symbicort 160-4.5 Mcg Inhaler] Metoprolol [Lopressor TAB] 25 mg PO DAILY 09/15/21 09/18/21 Unknown History amLODIPine 5 mg PO DAILY 09/15/21 09/18/21 Unknown History ALBUTEROL NEB's [Proventil 0.083% 2.5 mg IH Q4H PRN 09/18/21 09/18/21 Unknown History NEBS] ALPRAZolam [Xanax TAB] 0.5 mg PO HS PRN 09/18/21 09/18/21 Unknown History Tiotropium [place] [Spiriva] 1 puff IH QDAY 09/18/21 09/18/21 Unknown History Insulin Aspart Prot/Aspart(Nf) 20 units SQ BIDAC 09/19/21 09/19/21 Unknown History [NovoLOG Mix 70/30 VIAL] Review of Systems Constitutional: weakness, no weight loss, no weight gain, no fever, no chills Ears, nose, mouth and throat: no ear pain, no ear discharge Breasts: no change in shape, no swelling, no mass Cardiovascular: no chest pain, no orthopnea, no palpitations, no rapid/irregular heart beat Respiratory: shortness of breath, dyspnea on exertion Gastrointestinal: no abdominal pain, no nausea, no vomiting, no diarrhea, no constipation Genitourinary Female: no pelvic pain, no flank pain, no dysuria, no urinary frequency, no urgency, no stress incontinence Rectal: no pain, no incontinence, no bleeding Musculoskeletal: no neck stiffness, no neck pain, no shooting arm pain, no arm numbness/tingling, no low back pain Integumentary: no rash, no pruritis, no redness, no sores, no wounds Neurological: no head injury, no transient paralysis, no paralysis, no weakness, no parathesias, no numbness, no tingling Psychiatric: no anxiety, no memory loss, no change in sleep habits, no sleep disturbances, no insomnia, no change in appetite Endocrine: no cold intolerance, no heat intolerance, no excessive thirst, no polydipsia, no nocturia, no excessive sweating, no flushing Hematologic/Lymphatic: no easy bruising, no easy bleeding Allergic/Immunologic: no urticaria, no allergic rhinitis Exam - Constitutional Vitals: Temp Pulse Resp BP Pulse Ox 81 27 H 205/86 97 10/29/21 11:25 10/29/21 11:25 10/29/21 11:25 10/29/21 11:25 General appearance: Present: mild distress, obese - EENT Eyes: Present: PERRL ENT: hearing intact, clear oral mucosa - Neck Neck: Present: supple, normal ROM - Respiratory Respiratory effort: normal Respiratory: bilateral: diminished, rales - Cardiovascular Heart Sounds: Present: S1 & S2. Absent: rub, click - Extremities Extremities: pulses symmetrical, No edema Extremity abnormal: edema Peripheral Pulses: within normal limits - Abdominal General gastrointestinal: Present: soft, non-tender, non-distended, normal bowel sounds Female genitourinary: Present: normal - Integumentary Integumentary: Present: clear, warm, dry - Musculoskeletal Musculoskeletal: gait normal, strength equal bilaterally - Psychiatric Psychiatric: appropriate mood/affect, intact judgment & insight - Neurologic Neurologic: CNII-XII intact, moves all extremities HEART Score - HEART Score Troponin: Troponin T 0.080 ng/mL (0.00-0.029) H 10/29/21 11:41 Results - Labs CBC & Chem 7: 10/29/21 11:41 10/29/21 11:41 Labs: Abnormal lab results 10/29/21 10/29/21 10/29/21 Range/Units 11:41 11:41 11:41 RBC 3.51 L (3.65-5.03) M/mm3 MCV 100 H (79-97) fl RDW 18.0 H (13.2-15.2) % Seg Neutrophils % 74.7 H (40.0-70.0) % Potassium 6.5 H* (3.6-5.0) mmol/L Carbon Dioxide 21 L (22-30) mmol/L BUN 74 H (7-17) mg/dL Creatinine 15.1 H (0.6-1.2) mg/dL Troponin T 0.080 H (0.00-0.029) ng/mL Assessment and Plan - Patient Problems (1) Acute hypoxemic respiratory failure Current Visit: Yes Status: Acute Plan to address problem: Chest x-ray, supplemental oxygen, pulse oximetry, nebulizer therapy, noninvasive positive pressure ventilation, pulmonary toilet. (2) Fluid overload Current Visit: Yes Status: Acute Qualifiers: Hypervolemia type: unspecified Qualified Code(s): E87.70 - Fluid overload, unspecified Plan to address problem: Nephrology team consulted. Urgent dialysis. (3) Noncompliance of patient with renal dialysis Current Visit: Yes Status: Acute Plan to address problem: Patient counseled regarding compliance with outpatient dialysis as well as outpatient medication. (4) Hypertension Current Visit: Yes Status: Acute Qualifiers: Hypertension type: primary hypertension Qualified Code(s): I10 - Essential (primary) hypertension Plan to address problem: Monitor blood pressure every shift, continue medical management. (5) Diabetes Current Visit: No Status: Acute Plan to address problem: Consistent carbohydrate diet, Accu-Chek, insulin protocol, hypoglycemia protocol. (6) End-stage renal disease on hemodialysis Current Visit: No Status: Acute Plan to address problem: Dialysis as per renal team, nephrology team consulted in ED. (7) Obesity hypoventilation syndrome Current Visit: No Status: Acute Plan to address problem: Balanced diet, weight reduction, increase physical activity discharge, ou tpatient pulmonary follow-up for sleep study. Outpatient bariatric surgery follow-up. (8) Pulmonary edema Current Visit: No Status: Acute Qualifiers: Chronicity: acute Qualified Code(s): J81.0 - Acute pulmonary edema Plan to address problem: 's supplemental oxygen, supportive care, pulmonary toilet. (9) DVT prophylaxis Current Visit: Yes Status: Acute Plan to address problem: SCD to bilateral lower extremities while in bed (10) Advance care planning Current Visit: Yes Status: Acute Plan to address problem: Disease education data, care plan discussed, diagnoses discussed, prognosis discussed, patient is full code. Patient acknowledges understanding agreement with care plan, +30 minutes. (11) Preventative health care Current Visit: Yes Status: Acute Plan to address problem: Patient counseled regarding weight reduction, balanced diet, increase physical activity discharge, outpatient pulmonary follow-up for sleep study, outpatient bariatric surgery follow-up. Outpatient follow-up with primary care physician for all age and risk factor appropriate screening test. Outpatient follow-up with gynecology for all age and risk factor proper screening test. +30 minutes.
[2021-10-29] MEDS ORDERED: ONDANSETRON 4 MG/2 ML INJ IV PRN (14:21)
[2021-10-29 14:48] LABS: Chol/HDL Ratio 4.4 %
[2021-10-29 16:47] LABS: Hepatitis B Surface Antigen Non-Reactive (Negative); Hepatitis C Virus Antibody Non-Reactive (NonReactive)
--- NOTE | 2021-10-29 19:37 | Event Note ---
Patient is patient is being admitted here with hyperkalemia shortness of breath, volume overload, admission potassium 6.5 BUN 74 creatinine 15.1, borderline elevated troponin 0.080 hemoglobin is around 10.6, hemodialysis orders have been given. By Dr. Wadsworth, patient will need a two-view chest x-ray tomorrow morning along with a repeat basic metabolic profile, if there are any questions in regard to this patient renal care please call me at [phone] Thank you
[2021-10-29] MEDS: oxyCODONE /ACETAMINOPHEN 5-325MG TAB PO PRN (21:25)
[2021-10-29] MEDS: methylPREDNISolone Sod Succinate 40 MG/1 ML INJ IV SCH (22:51)
[2021-10-30] MEDS: ALPRAZolam 0.5 MG TAB PO PRN ×3 (03:37→20:29)
[2021-10-30] MEDS: HYDROmorphone 0.5 MG/0.5 ML INJ IV PRN ×2 (03:37→20:29)
[2021-10-30] MEDS: methylPREDNISolone Sod Succinate 40 MG/1 ML INJ IV SCH ×3 (06:40→21:13)
[2021-10-30 07:00] LABS: Calcium 8.3 mg/dL (8.4-10.2)
[2021-10-30] MEDS ORDERED: SODIUM CHLORIDE 0.9% 100 ML IV PRN (08:49)
--- NOTE | 2021-10-30 08:49 | Consultation ---
History of Present Illness - History of Present Illness Patient was evaluated today my assessment and plan are as follows #End-stage kidney disease: Patient did receive hemodialysis yesterday however even today her potassium is elevated, her fistula appears to be pulsatile and hence I suspect stenosis and patient will benefit from fistulogram, have discussed the care plan with Dr. Henley, patient can be treated with potassium lowe ring agent today and then subsequently be considered for dialysis post fistulogram tomorrow, that would be ideal, Monitor dialysis related labs/monitor for any access issues Fluid restriction 1200 cc/day high-protein diet #Access: Needs to be monitored during dialysis Currently her access is pulsatile I did discuss with Dr. 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 the formal fistulogram #Hypertension and volume: To monitor and follow avoid hypotension tachycardia during dialysis ultrafiltration goals can be adjusted if needed dialysis nurse to monitor hemodynamics closely #Anemia in end-stage kidney disease: To monitor and follow erythropoietin periodically goal hemoglobin between 10-11-1/2 Minimize lab draw in dialysis patients, if possible consider limiting to yared lysis days Bone mineral disorder and secondary hyperparathyroidism; Monitor phosphorus binders as necessary goal phosphorus less than 5-1/2 #Diet and nutrition: High-protein diet, multivitamin, Nepro, Noted to be hyperkalemic upon admission, potassium is currently 5.7 which can be treated conservatively depending on surgery plans, #Medication recommendation: Avoid any form of STEPHAN inhibitor's or angiotensin receptor naif, #Currently using CPAP/history of respiratory failure/insufficiency All related questions have been addressed with the patient including diet lifestyle changes fluid restriction sodium restrictions avoidance of processed food as much as possible If you have any question in regards to this patient renal care please feel free to contact me at [phone] Author: Refugio Ornelas M.D. [facility], [address] [place] [address] Tel; [phone] [employer] Source of information: From patient As well as her current chart it was reviewed History of present illness Patient is being seen here for renal follow-up, patient stated that she has had multiple kidney stones and was placed on potassiums citrate 4 times a day also has had procedures done, she has not been to our clinic since 2019, hence no follow-up and poor compliance Denies any complaints of dysuria burning frequency, no chest pain pressure shortness of breath, outside blood pressure recordings have been reviewed with patient, Current medications well-tolerated without any side effect, list was verified with patient Past medical history: Reviewed from the current chart Current allergies: Reviewed from the current chart Social history: Reviewed from the current chart Family history: Reviewed from the current chart Review of system: Positive for Shortness of breath, volume overload, no fever chills or any sick contacts All other review of systems negative Physical examination Vitals: Reviewed General: No acute distress HEENT: Oral mucosa moist no pallor or icterus Neck: Supple without any JVD thyromegaly or nodular mass Chest: Clear to auscultation Heart: Regular rate and rhythm S1-S2 heard no S3-S4 Abdomen: Soft nontender, bowel sounds present no renal bruit no suprapubic masses no CVA tenderness noted Extremity: Minimal edema dry skin no peripheral cyanosis Left upper arm fistula appears to be pulsatile and slightly swollen, has sharp bruit approximately Endocrine: Thyroid not enlarged Psychiatric: No agitation and aggression noted Musculoskeletal: No joint effusion noted Labs and x-rays: Reviewed from this admission Past History Past Medical History: diabetes, ESRD, hypertension Past Surgical History: Other (Dialysis access) Social history: single. denies: smoking, alcohol abuse, prescription drug abuse Family history: diabetes, hypertension Medications and Allergies Allergies Allergy/AdvReac Type Severity Reaction Status Date / Time codeine Allergy Itching Verified 10/29/21 13:29 Home Medications Medication Instructions Recorded Confirmed Last Taken Type Albuterol Mdi (or & Nicu Only) 2 puff IH QID PRN 09/15/21 10/30/21 Unknown History [ProAir HFA Inhaler] Budesonide/Formoterol Fumarate 2 inhalation IH BID 09/15/21 10/30/21 Unknown History [Symbicort 160-4.5 Mcg Inhaler] Metoprolol [Lopressor TAB] 25 mg PO DAILY 09/15/21 10/30/21 Unknown History amLODIPine 5 mg PO DAILY 09/15/21 10/30/21 Unknown History ALBUTEROL NEB's [Proventil 0.083% 2.5 mg IH Q4H PRN 09/18/21 10/30/21 Unknown History NEBS] ALPRAZolam [Xanax TAB] 0.5 mg PO HS PRN 09/18/21 10/30/21 Unknown History Tiotropium [place] [Spiriva] 1 puff IH QDAY 09/18/21 10/30/21 Unknown History Insulin Aspart Prot/Aspart(Nf) 20 units SQ BIDAC 09/19/21 10/30/21 Unknown History [NovoLOG Mix 70/30 VIAL] Active Meds: Active Medications Acetaminophen (Acetaminophen 325 Mg Tab) 650 mg PO Q4H PRN PRN Reason: Pain MILD(1-3)/Fever >100.5/[place]TON Albuterol (Albuterol 2.5 Mg/3 Ml Nebu) 2.5 mg IH Q4HRT PRN PRN Reason: Shortness Of Breath Alprazolam (Alprazolam 0.5 Mg Tab) 0.5 mg PO HS PRN PRN Reason: Anxiety Last Admin: 10/30/21 03:37 Dose: 0.5 mg Amlodipine Besylate (Amlodipine 5 Mg Tab) 5 mg PO DAILY [facility] Hydromorphone HCl (Hydromorphone 0.5 Mg/0.5 Ml Inj) 0.5 mg IV Q23H PRN PRN Reason: Pain , Severe (7-10) Last Admin: 10/30/21 03:37 Dose: 0.5 mg Methylprednisolone Sodium Succinate (Methylprednisolone Sod Succinate 40 Mg/1 Ml Inj) 40 mg IV Q8HR NINA Last Admin: 10/30/21 06:40 Dose: 40 mg Metoprolol Tartrate (Metoprolol Tartrate 25 Mg Tab) 25 mg PO DAILY [facility] Ondansetron HCl (Ondansetron 4 Mg/2 Ml Inj) 4 mg IV Q8H PRN PRN Reason: Nausea And Vomiting Oxycodone/Acetaminophen (Oxycodone /Acetaminophen 5-325mg Tab) 1 tab PO Q16H PRN PRN Reason: Pain, Moderate (4-6) Last Admin: 10/29/21 21:25 Dose: 1 tab Sodium Chloride (Sodium Chloride 0.9% 10 Ml Flush Syringe) 10 ml IV BID [facility] Last Admin: 10/29/21 22:51 Dose: 10 ml Sodium Chloride (Sodium Chloride 0.9% 10 Ml Flush Syringe) 10 ml IV PRN PRN PRN Reason: LINE FLUSH Tiotropium [place] (Tiotropium 18 Mcg Cap Inhalation) 1 puff IH QDAY [facility] Exam - Vital Signs Vital signs: Vital Signs Pulse Resp BP Pulse Ox 78 20 197/100 94 08/29/22 10:27 10/29/21 10:27 10/29/21 10:27 10/29/21 10:27 Results - Lab Results 10/29/21 11:41 10/30/21 05:42 Most recent lab results Calcium 8.3 mg/dL (8.4-10.2) L 10/30/21 05:42
[2021-10-30] MEDS: amLODIPine 5 MG TAB PO SCH (09:10)
[2021-10-30] MEDS: METOPROLOL TARTRATE 25 MG TAB PO SCH (09:10)
[2021-10-30] MEDS: TIOTROPIUM 18 MCG CAP INHALATION IH SCH ×2 (09:30→14:36)
--- NOTE | 2021-10-30 11:41 | Progress Note ---
Assessment and Plan Assessment and plan: 56 YO Female with ESRD on HD(M,W,F), HTN, DM, COPD, Noncompliance presents to ED for evaluation of shortness of breath over the past 3 days. Patient acknowledges multiple missed dialysis sessions over the past week due to inability to be transported to dialysis. ESRD Fluid overload/pulmonary edema Acute hypoxic respiratory failure medical noncompliance Hypertension Diabetes mellitus type 2 Obesity hypoventilation syndrome 10/30/2021. Patient did receive hemodialysis yesterday. However, her potassium remained elevated. Nephrology report her fistula appears to be pulsatile and hence suspicion for stenosis. Patient will benefit from fistulogram. Nephrology discussed the care plan with Dr. Valera. Patient will be treated with potassium lowering agent today and then subsequently be considered for dialysis post fistulogram tomorrow. History Interval history: No new issues overnight Hospitalist Physical - Constitutional Vitals: Temp Pulse Resp BP Pulse Ox 98.4 F 67 20 145/80 94 10/30/21 03:43 10/30/21 09:09 10/30/21 09:09 10/30/21 09:09 10/30/21 09:47 General appearance: Present: no acute distress, obese - EENT Eyes: Present: PERRL, EOM intact ENT: hearing intact, clear oral mucosa, dentition normal - Neck Neck: Present: supple, normal ROM - Respiratory Respiratory effort: normal Respiratory: bilateral: CTA - Cardiovascular Rhythm: regular Heart Sounds: Present: S1 & S2. Absent: gallop, rub - Extremities Extremities: no ischemia, No edema, Full ROM - Abdominal General gastrointestinal: soft, non-tender, non-distended, normal bowel sounds - Integumentary Integumentary: Present: clear, warm, dry - Neurologic Neurologic: CNII-XII intact, moves all extremities HEART Score - HEART Score Troponin: Troponin T 0.080 ng/mL (0.00-0.029) H 10/29/21 11:41 Results - Labs CBC & Chem 7: 10/29/21 11:41 10/30/21 05:42 Labs: Laboratory Last Values WBC 7.8 K/mm3 (4.5-11.0) 10/29/21 11:41 RBC 3.51 M/mm3 (3.65-5.03) L 10/29/21 11:41 Hgb 10.6 gm/dl (10.1-14.3) 10/29/21 11:41 Hct 35.1 % (30.3-42.9) 10/29/21 11:41 MCV 100 fl (79-97) H 10/29/21 11:41 MCH 30 pg (28-32) 10/29/21 11:41 MCHC 30 % (30-34) 10/29/21 11:41 RDW 18.0 % (13.2-15.2) H 10/29/21 11:41 Plt Count 221 K/mm3 (140-440) 10/29/21 11:41 Lymph % (Auto) 15.8 % (13.4-35.0) 10/29/21 11:41 [place] % (Auto) 5.7 % (0.0-7.3) 10/29/21 11:41 Eos % (Auto) 3.3 % (0.0-4.3) 10/29/21 11:41 Baso % (Auto) 0.5 % (0.0-1.8) 10/29/21 11:41 Lymph # (Auto) 1.2 K/mm3 (1.2-5.4) 10/29/21 11:41 [place] # (Auto) 0.4 K/mm3 (0.0-0.8) 10/29/21 11:41 Eos # (Auto) 0.3 K/mm3 (0.0-0.4) 10/29/21 11:41 Baso # (Auto) 0.0 K/mm3 (0.0-0.1) 10/29/21 11:41 Seg Neutrophils % 74.7 % (40.0-70.0) H 10/29/21 11:41 Seg Neutrophils # 5.9 K/mm3 (1.8-7.7) 10/29/21 11:41 PT 13.9 Sec. (12.2-14.9) 10/29/21 11:41 INR 0.97 (0.87-1.13) 10/29/21 11:41 APTT 33.5 Sec. (24.2-36.6) 10/29/21 11:41 Sodium 138 mmol/L (137-145) 10/30/21 05:42 Potassium 5.7 mmol/L (3.6-5.0) H 10/30/21 05:42 Chloride 96.6 mmol/L (98-107) L 10/30/21 05:42 Carbon Dioxide 27 mmol/L (22-30) 10/30/21 05:42 Anion Gap 20 mmol/L 10/30/21 05:42 BUN 44 mg/dL (7-17) H 10/30/21 05:42 Creatinine 10.0 mg/dL (0.6-1.2) H 10/30/21 05:42 Estimated GFR 5 ml/min 10/30/21 05:42 BUN/Creatinine Ratio 4 % 10/30/21 05:42 Glucose 161 mg/dL (65-100) H 10/30/21 05:42 Calcium 8.3 mg/dL (8.4-10.2) L 10/30/21 05:42 Total Bilirubin 0.40 mg/dL (0.1-1.2) 10/29/21 11:41 AST 11 units/L (5-40) 10/29/21 11:41 ALT 7 units/L (7-56) 10/29/21 11:41 Alkaline Phosphatase 87 units/L (35-129) 10/29/21 11:41 Troponin T 0.080 ng/mL (0.00-0.029) H 10/29/21 11:41 Total Protein 7.0 g/dL (6.3-8.2) 10/29/21 11:41 Albumin 4.7 g/dL (3.9-5) 10/29/21 11:41 Albumin/Globulin Ratio 2.0 % 10/29/21 11:41 Triglycerides 119 mg/dL (2-149) 10/29/21 11:41 Cholesterol 185 mg/dL (50-199) 10/29/21 11:41 LDL Cholesterol Direct 111 mg/dL (50-130) 10/29/21 11:41 HDL Cholesterol 42 mg/dL (40-59) 10/29/21 11:41 Cholesterol/HDL Ratio 4.40 % 10/29/21 11:41 Hepatitis A IgM Ab Non-reactive (NonReactive) 10/29/21 15:55 Hep Bs Antigen Non-reactive (Negative) 10/29/21 15:55 Hep B Core IgM Ab Non-reactive (NonReactive) 10/29/21 15:55 Hepatitis C Antibody Non-reactive (NonReactive) 10/29/21 15:55 Smith/IV: Voiding Method Toilet Active Medications - Current Medications Current Medications: Generic Name Dose Route Start Last Admin Trade Name Freq PRN Reason Stop Dose Admin Acetaminophen 650 mg 10/29/21 14:21 Acetaminophen 325 Mg Tab PO Q4H PRN Pain MILD(1-3)/Fever >100.5/[place] Albuterol 2.5 mg 10/29/21 14:21 Albuterol 2.5 Mg/3 Ml Nebu IH Q4HRT PRN Shortness Of Breath Alprazolam 0.5 mg 10/29/21 14:23 10/30/21 03:37 Alprazolam 0.5 Mg Tab PO 0.5 mg HS PRN Administration Anxiety Amlodipine Besylate 5 mg 10/30/21 10:00 10/30/21 09:10 Amlodipine 5 Mg Tab PO 5 mg DAILY NINA Administration Hydromorphone HCl 0.5 mg 10/29/21 14:21 10/30/21 03:37 Hydromorphone 0.5 Mg/0.5 Ml Inj IV 0.5 mg Q23H PRN Administration Pain , Severe (7-10) Sodium Chloride 100 mls @ 999 mls/hr 10/30/21 08:49 Nacl 0.9% IV SRI PRN Hypotension Methylprednisolone Sodium Succinate 40 mg 10/29/21 22:00 10/30/21 06:40 Methylprednisolone Sod Succinate 40 Mg/1 Ml Inj IV 40 mg Q8HR NINA Administration Metoprolol Tartrate 25 mg 10/30/21 10:00 10/30/21 09:10 Metoprolol Tartrate 25 Mg Tab PO 25 mg DAILY NINA Administration Ondansetron HCl 4 mg 10/29/21 14:21 Ondansetron 4 Mg/2 Ml Inj IV Q8H PRN Nausea And Vomiting Oxycodone/Acetaminophen 1 tab 10/29/21 14:21 10/29/21 21:25 Oxycodone /Acetaminophen 5-325mg Tab PO 1 tab Q16H PRN Administration Pain, Moderate (4-6) Sodium Chloride 10 ml 10/29/21 22:00 10/30/21 09:10 Sodium Chloride 0.9% 10 Ml Flush Syringe IV 10 ml BID NINA Administration Sodium Chloride 10 ml 10/29/21 14:21 Sodium Chloride 0.9% 10 Ml Flush Syringe IV PRN PRN LINE FLUSH Tiotropium [place] 1 puff 10/30/21 10:00 10/30/21 09:30 Tiotropium 18 Mcg Cap Inhalation IH Not Given QDAY NINA
--- NOTE | 2021-10-30 13:15 | Electrocardiograph Report ---
[facility] Test Date: 2021-10-29 Test Time: 11:54:39 Pat Name: OSCAR BASSETT Department: Room: A386 Gender: F Body Specialist: IAM : 1965 Requested By: OTILIA HORNE Order Number: [id number] Reading MD: Trever Montero Measurements Intervals Tracy Rate: 71 P: 61 HI: 186 QRS: 18 QRSD: 79 T: 67 QT: 414 QTc: 451 Interpretive Statements Sinus rhythm Low voltage, precordial leads No previous ECG available for comparison Electronically Signed On 10-30-2021 13:14:54 EDT by Trever Montero
[2021-10-30] MEDS: oxyCODONE /ACETAMINOPHEN 5-325MG TAB PO PRN (13:45)
[2021-10-31 05:09] LABS: Basophils # (Auto) 0.1 K/mm3 (0.0-0.1); Basophils % (Auto) 2.1 % (0.0-1.8); Eosinophils % (Auto) 0.1 % (0.0-4.3); Lymphocytes # (Auto) 0.3 K/mm3 (1.2-5.4); Lymphocytes % (Auto) 5.4 % (13.4-35.0); Mean Corpuscular HGB Conc 30 % (30-34); Mean Corpuscular Volume 98 fl (79-97); Monocytes # (Auto) 0.2 K/mm3 (0.0-0.8); Monocytes % (Auto) 3.8 % (0.0-7.3); Platelet Count 182 K/mm3 (140-440); Red Cell Distribution Width 16.2 % (13.2-15.2)
[2021-10-31 05:12] LABS: Hematocrit 33.3 % (30.3-42.9)
[2021-10-31 05:22] LABS: Calcium 7.9 mg/dL (8.4-10.2)
[2021-10-31] MEDS: methylPREDNISolone Sod Succinate 40 MG/1 ML INJ IV SCH ×3 (05:45→21:45)
[2021-10-31] MEDS ORDERED: SODIUM POLYSTYRENE 15 GM/60 ML ORAL LIQD PO ONE (06:01)
[2021-10-31] MEDS: ACETAMINOPHEN 325 MG TAB PO PRN ×2 (06:18→18:55)
[2021-10-31] MEDS ORDERED: DEXTROSE 50% IN WATER (25GM) 50 ML VIAL IV ONE (09:07)
--- NOTE | 2021-10-31 09:07 | Progress Note ---
Subjective Interval history: Assessment and plan End-stage kidney disease patient is currently on maintenance hemodialysis despite 2 days of dialysis her potassium remains elevated, patient needs to have fistulogram subsequent to which she will need to get dialysis today which will be ordered, fistulogram has already been requested with vascular surgery #Hyperkalemia Patient will receive 1 amp of calcium gluconate, another 30 g of Kayexalate D50 and insulin, fistulogram is needed today she has already received 15 g of Kayexalate #Anemia in end-stage kidney disease hemoglobin currently 10.0, normal platelet count however some decline: To monitor and follow start erythropoietin #Suspected stenosis of her fistula appears to be pulsatile with sharp bruit, discussed with Dr. Joel Valera yesterday about fistulogram If there are any renal related issues in regards to this patient please feel free to reach out without any hesitation at [phone] We'll continue to follow and make recommendation for renal standpoint. Progress note by: Refugio Ornelas MD [address] [place] [address] Tele [phone] [email or web address] Patient was seen today for follow-up of multiple renal related issues, has had dialysis yesterday but potassium still remains 1 despite 2 different treatments, pending fistulogram, discussed with Dr. Valera yesterday No acute complaints, events of 24 hours vitals current available labs intake output medications were reviewed Past medical history: Reviewed Family history: Reviewed Social history: Reviewed Allergies: Reviewed Physical examination: Vitals: Reviewed HEENT: No pallor or icterus oral mucosa moist Neck: Supple no JVD no thyromegaly Chest: Bilateral clear to auscultation anteriorly Heart: Regular rate and rhythm S1-S2 heard no S3-S4 Abdomen: Soft nontender no voluntary guarding rigidity rebound Extremity: Dry skin less than 1+ peripheral edema Psychiatric: No evidence of agitation and aggression noted Dermatology: No petechial rashes Labs and x-rays: Reviewed from today Objective - Vital Signs Vital signs: Vital Signs - 12hr 10/30/21 10/31/21 10/31/21 22:31 00:37 02:00 Temperature 97.2 F L Pulse Rate 78 Respiratory 22 18 Rate Blood Pressure 213/79 O2 Sat by Pulse 94 65 L Oximetry 10/31/21 10/31/21 04:41 05:08 Temperature 97.3 F L Pulse Rate 71 62 Respiratory 15 20 Rate Blood Pressure 165/75 O2 Sat by Pulse 100 100 Oximetry - Lab 10/31/21 04:45 10/31/21 04:45 Most recent lab results Calcium 7.9 mg/dL (8.4-10.2) L 10/31/21 04:45 Medications & Allergies - Medications Allergies/Adverse Reactions: Allergies codeine Allergy (Verified 10/29/21 13:29) Itching Home Medications: Home Medications Medication Instructions Recorded Confirmed Last Taken Type Albuterol Mdi (or & Nicu Only) 2 puff IH QID PRN 09/15/21 10/30/21 Unknown History [ProAir HFA Inhaler] Budesonide/Formoterol Fumarate 2 inhalation IH BID 09/15/21 10/30/21 Unknown History [Symbicort 160-4.5 Mcg Inhaler] Metoprolol [Lopressor TAB] 25 mg PO DAILY 09/15/21 10/30/21 Unknown History amLODIPine 5 mg PO DAILY 09/15/21 10/30/21 Unknown History ALBUTEROL NEB's [Proventil 0.083% 2.5 mg IH Q4H PRN 09/18/21 10/30/21 Unknown History NEBS] ALPRAZolam [Xanax TAB] 0.5 mg PO HS PRN 09/18/21 10/30/21 Unknown History Tiotropium [place] [Spiriva] 1 puff IH QDAY 09/18/21 10/30/21 Unknown History Insulin Aspart Prot/Aspart(Nf) 20 units SQ BIDAC 09/19/21 10/30/21 Unknown History [NovoLOG Mix 70/30 VIAL] Active Medications: Generic Name Dose Route Start Last Admin Trade Name Freq PRN Reason Stop Dose Admin Acetaminophen 650 mg 10/29/21 14:21 10/31/21 06:18 Acetaminophen 325 Mg Tab PO 650 mg Q4H PRN Administration Pain MILD(1-3)/Fever >100.5/[place] Albuterol 2.5 mg 10/29/21 14:21 Albuterol 2.5 Mg/3 Ml Nebu IH Q4HRT PRN Shortness Of Breath Alprazolam 0.5 mg 10/29/21 14:23 10/30/21 20:29 Alprazolam 0.5 Mg Tab PO 0.5 mg HS PRN Administration Anxiety Amlodipine Besylate 5 mg 10/30/21 10:00 10/30/21 09:10 Amlodipine 5 Mg Tab PO 5 mg DAILY NINA Administration Hydromorphone HCl 0.5 mg 10/29/21 14:21 10/30/21 20:29 Hydromorphone 0.5 Mg/0.5 Ml Inj IV 0.5 mg Q23H PRN Administration Pain , Severe (7-10) Sodium Chloride 100 mls @ 999 mls/hr 10/30/21 08:49 Nacl 0.9% IV SRI PRN Hypotension Methylprednisolone Sodium Succinate 40 mg 10/29/21 22:00 10/31/21 05:45 Methylprednisolone Sod Succinate 40 Mg/1 Ml Inj IV 40 mg Q8HR NINA Administration Metoprolol Tartrate 25 mg 10/30/21 10:00 10/30/21 09:10 Metoprolol Tartrate 25 Mg Tab PO 25 mg DAILY NINA Administration Ondansetron HCl 4 mg 10/29/21 14:21 Ondansetron 4 Mg/2 Ml Inj IV Q8H PRN Nausea And Vomiting Oxycodone/Acetaminophen 1 tab 10/29/21 14:21 10/30/21 13:45 Oxycodone /Acetaminophen 5-325mg Tab PO 1 tab Q16H PRN Administration Pain, Moderate (4-6) Sodium Chloride 10 ml 10/29/21 22:00 10/30/21 21:14 Sodium Chloride 0.9% 10 Ml Flush Syringe IV 10 ml BID NINA Administration Sodium Chloride 10 ml 10/29/21 14:21 Sodium Chloride 0.9% 10 Ml Flush Syringe IV PRN PRN LINE FLUSH Tiotropium [place] 1 puff 10/30/21 10:00 10/30/21 14:36 Tiotropium 18 Mcg Cap Inhalation IH 1 puff QDAY NINA Administration
[2021-10-31] MEDS ORDERED: CALCIUM GLUCONATE 1,000 MG in SODIUM CHLORIDE 0.9% 100 ML IV ONE (09:09)
[2021-10-31] MEDS ORDERED: INSULIN REGULAR, HUMAN 100 UNITS/1 ML IV NR (09:15)
[2021-10-31] MEDS ORDERED: SODIUM POLYSTYRENE 15 GM/60 ML ORAL LIQD PO NR (09:30)
[2021-10-31] MEDS ORDERED: CALC GLUCONATE 1GM/NS 100 ML 1 GM/100 ML BAG IV NR (09:30)
[2021-10-31] MEDS ORDERED: SODIUM CHLORIDE 0.9% 1000 ML 1,000 ML ONE (09:48)
[2021-10-31] MEDS ORDERED: HEPARIN 10,000 UNITS/10 ML VIAL ONE ×2 (09:48→09:49)
[2021-10-31] MEDS ORDERED: HEPARIN/NS 5000 UNIT/500ML 500 ML IR ONE (09:52)
--- NOTE | 2021-10-31 10:02 | Consultation ---
History of Present Illness - Reason for Consult Consult date: 10/31/21 Complications of Dialysis Access Requesting physician: LENNOX MALHOTRA - History of Present Illness The patient is a 56-year-old female who initially presented to the emergency department with complaints of shortness of breath. She was found to have acute exacerbation of CHF as well as hyperkalemia. The patient has a past medical history of end-stage renal disease and is on hemodialysis through a left arm arteriovenous fistula. She states that over the past couple of months she has had a significant amount of pain with cannulation of the fistula as well as prolonged bleeding after dialysis. She states she has not had her fistula evaluated in a while. She has no additional complaints at this time. Past History Past Medical History: diabetes, dialysis, ESRD, heart failure, hypertension Past Surgical History: Other (Creation of left arm arteriovenous fistula, revision with elevation of left arm arteriovenous fistula) Social history: single. denies: smoking, alcohol abuse, prescription drug abuse Family history: diabetes, hypertension Medications and Allergies Allergies Allergy/AdvReac Type Severity Reaction Status Date / Time codeine Allergy Itching Verified 10/29/21 13:29 Home Medications Medication Instructions Recorded Confirmed Last Taken Type Albuterol Mdi (or & Nicu Only) 2 puff IH QID PRN 09/15/21 10/30/21 Unknown History [ProAir HFA Inhaler] Budesonide/Formoterol Fumarate 2 inhalation IH BID 09/15/21 10/30/21 Unknown History [Symbicort 160-4.5 Mcg Inhaler] Metoprolol [Lopressor TAB] 25 mg PO DAILY 09/15/21 10/30/21 Unknown History amLODIPine 5 mg PO DAILY 09/15/21 10/30/21 Unknown History ALBUTEROL NEB's [Proventil 0.083% 2.5 mg IH Q4H PRN 09/18/21 10/30/21 Unknown History NEBS] ALPRAZolam [Xanax TAB] 0.5 mg PO HS PRN 09/18/21 10/30/21 Unknown History Tiotropium [place] [Spiriva] 1 puff IH QDAY 09/18/21 10/30/21 Unknown History Insulin Aspart Prot/Aspart(Nf) 20 units SQ BIDAC 09/19/21 10/30/21 Unknown History [NovoLOG Mix 70/30 VIAL] Active Meds: Active Medications Acetaminophen (Acetaminophen 325 Mg Tab) 650 mg PO Q4H PRN PRN Reason: Pain MILD(1-3)/Fever >100.5/[place] Last Admin: 10/31/21 06:18 Dose: 650 mg Albuterol (Albuterol 2.5 Mg/3 Ml Nebu) 2.5 mg IH Q4HRT PRN PRN Reason: Shortness Of Breath Alprazolam (Alprazolam 0.5 Mg Tab) 0.5 mg PO HS PRN PRN Reason: Anxiety Last Admin: 10/30/21 20:29 Dose: 0.5 mg Amlodipine Besylate (Amlodipine 5 Mg Tab) 5 mg PO DAILY [facility] Last Admin: 10/30/21 09:10 Dose: 5 mg Dextrose (Dextrose 50% In Water (25gm) 50 Ml Syringe) 50 ml IV ONCE@914 NR Stop: 10/31/21 14:00 Hydromorphone HCl (Hydromorphone 0.5 Mg/0.5 Ml Inj) 0.5 mg IV Q23H PRN PRN Reason: Pain , Severe (7-10) Last Admin: 10/30/21 20:29 Dose: 0.5 mg Sodium Chloride (Nacl 0.9%) 100 mls @ 999 mls/hr IV SRI PRN PRN Reason: Hypotension CALC GLUCONATE 1GM/NS 100 ML (Calcium Gluonate/Ns 1,000mg/100ml) 1 gm in 100 mls @ 200 mls/hr IV ONCE@30 NR Stop: 10/31/21 14:00 Insulin Human Regular (Insulin Regular, Human 100 Units/1 Ml) 4 units IV ONCE@914 NR Stop: 10/31/21 14:00 Methylprednisolone Sodium Succinate (Methylprednisolone Sod Succinate 40 Mg/1 Ml Inj) 40 mg IV Q8HR [facility] Last Admin: 10/31/21 05:45 Dose: 40 mg Metoprolol Tartrate (Metoprolol Tartrate 25 Mg Tab) 25 mg PO DAILY [facility] Last Admin: 10/30/21 09:10 Dose: 25 mg Ondansetron HCl (Ondansetron 4 Mg/2 Ml Inj) 4 mg IV Q8H PRN PRN Reason: Nausea And Vomiting Oxycodone/Acetaminophen (Oxycodone /Acetaminophen 5-325mg Tab) 1 tab PO Q16H PRN PRN Reason: Pain, Moderate (4-6) Last Admin: 10/30/21 13:45 Dose: 1 tab Sodium Chloride (Sodium Chloride 0.9% 10 Ml Flush Syringe) 10 ml IV BID [facility] Last Admin: 10/30/21 21:14 Dose: 10 ml Sodium Chloride (Sodium Chloride 0.9% 10 Ml Flush Syringe) 10 ml IV PRN PRN PRN Reason: LINE FLUSH Sodium Polystyrene Sulfonate (Sodium Polystyrene 15 Gm/60 Ml Oral Liqd) 30 gm PO ONCE@0930 NR Stop: 10/31/21 14:00 Tiotropium [place] (Tiotropium 18 Mcg Cap Inhalation) 1 puff IH QDAY [facility] Last Admin: 10/30/21 14:36 Dose: 1 puff Review of Systems All systems: negative Exam - Constitutional Vitals: Temp Pulse Resp BP Pulse Ox 97.3 F L 62 20 165/75 100 10/31/21 05:08 10/31/21 05:08 10/31/21 05:08 10/31/21 05:08 10/31/21 05:08 General appearance: Present: no acute distress - Respiratory Respiratory effort: normal - Cardiovascular Rhythm: regular - Extremities Extremities: abnormal (Left arm arteriovenous fistula with palpable thrill near the arterial inflow and venous outflow however is pulsatile within the cannulation zone of the fistula. There are small pseudoaneurysms within the cannulation zone however there is no ulceration) - Abdominal General gastrointestinal: Present: soft Female genitourinary: Present: deferred - Rectal Rectal Exam: deferred Results - Labs CBC & Chem 7: 10/31/21 04:45 10/31/21 04:45 Labs: Abnormal lab results 10/30/21 10/31/21 10/31/21 Range/Units 22:27 04:45 04:45 RBC 3.40 L (3.65-5.03) M/mm3 Hgb 10.0 L (10.1-14.3) gm/dl MCV 98 H (79-97) fl RDW 16.2 H (13.2-15.2) % Lymph % (Auto) 5.4 L (13.4-35.0) % Baso % (Auto) 2.1 H (0.0-1.8) % Lymph # (Auto) 0.3 L (1.2-5.4) K/mm3 Seg Neutrophils % 88.6 H (40.0-70.0) % Potassium 6.1 H* (3.6-5.0) mmol/L Chloride 95.2 L (98-107) mmol/L BUN 57 H (7-17) mg/dL Creatinine 8.1 H (0.6-1.2) mg/dL Glucose 216 H (65-100) mg/dL POC Glucose 277 H (70-105) mg/dL Calcium 7.9 L (8.4-10.2) mg/dL Assessment and Plan The patient is a 56-year-old female with a history of end-stage renal disease who presents with complaints of pain and prolonged bleeding from her left arm arteriovenous fistula. She is also suffered from hyperkalemia since her admission which is likely secondary to poor clearance and recirculation of blood during dialysis. She is in need of a diagnostic fistulogram with possible intervention. She has been given risk, benefits, and alternative procedures and consented to the procedure.
[2021-10-31] MEDS: MIDAZOLAM 2 MG/2 ML INJ ONE ×3 (10:10→10:44)
[2021-10-31] MEDS: fentaNYL 100 MCG/2 ML INJ ONE ×3 (10:10→10:45)
[2021-10-31] MEDS: LIDOCAINE (2%) 20 MG/1 ML VIAL 20 ML MDV INFILTRATI ONE ×3 (10:11→10:43)
[2021-10-31] MEDS ORDERED: diphenhydrAMINE 50 MG/ML VIAL ONE (10:58)
--- NOTE | 2021-10-31 11:26 | Progress Note ---
Assessment and Plan Assessment and plan: 56 YO Female with ESRD on HD(M,W,F), HTN, DM, COPD, Noncompliance presents to ED for evaluation of shortness of breath over the past 3 days. Patient acknowledges multiple missed dialysis sessions over the past week due to inability to be transported to dialysis. ESRD Fluid overload/pulmonary edema Acute hypoxic respiratory failure medical noncompliance Hypertension Diabetes mellitus type 2 Obesity hypoventilation syndrome 10/30/2021. Patient did receive hemodialysis yesterday. However, her potassium remained elevated. Nephrology report her fistula appears to be pulsatile and hence suspicion for stenosis. Patient will benefit from fistulogram. Nephrology discussed the care plan with Dr. Valera. Patient will be treated with potassium lowering agent today and then subsequently be considered for dialysis post fistulogram tomorrow. 10/31/2021. Patient still with hypokalemia today of 6.1 patient reported pain and prolonged bleeding from her left arm arteriovenous fistula. She is also suffered from hyperkalemia since her admission which is likely secondary to poor clearance and recirculation of blood during dialysis. Patient is scheduled for diagnostic fistulogram with possible intervention. Patient will likely undergo hemodialysis after the procedure. History Interval history: No new issues overnight Hospitalist Physical - Constitutional Vitals: Temp Pulse Resp BP Pulse Ox 97.3 F L 62 20 165/75 100 10/31/21 05:08 10/31/21 05:08 10/31/21 05:08 10/31/21 05:08 10/31/21 05:08 General appearance: Present: no acute distress - EENT Eyes: Present: PERRL, EOM intact ENT: hearing intact, clear oral mucosa, dentition normal - Neck Neck: Present: supple, normal ROM - Respiratory Respiratory effort: normal Respiratory: bilateral: CTA - Cardiovascular Rhythm: regular Heart Sounds: Present: S1 & S2. Absent: gallop, rub - Extremities Extremities: no ischemia, No edema, Full ROM - Abdominal General gastrointestinal: soft, non-tender, non-distended, normal bowel sounds - Integumentary Integumentary: Present: clear, warm, dry - Neurologic Neurologic: CNII-XII intact, moves all extremities HEART Score - HEART Score Troponin: Troponin T 0.080 ng/mL (0.00-0.029) H 10/29/21 11:41 Results - Labs CBC & Chem 7: 10/31/21 04:45 10/31/21 04:45 Labs: Laboratory Last Values WBC 4.7 K/mm3 (4.5-11.0) 10/31/21 04:45 RBC 3.40 M/mm3 (3.65-5.03) L 10/31/21 04:45 Hgb 10.0 gm/dl (10.1-14.3) L 10/31/21 04:45 Hct 33.3 % (30.3-42.9) 10/31/21 04:45 MCV 98 fl (79-97) H 10/31/21 04:45 MCH 29 pg (28-32) 10/31/21 04:45 MCHC 30 % (30-34) 10/31/21 04:45 RDW 16.2 % (13.2-15.2) H 10/31/21 04:45 Plt Count 182 K/mm3 (140-440) 10/31/21 04:45 Lymph % (Auto) 5.4 % (13.4-35.0) L 10/31/21 04:45 [place] % (Auto) 3.8 % (0.0-7.3) 10/31/21 04:45 Eos % (Auto) 0.1 % (0.0-4.3) 10/31/21 04:45 Baso % (Auto) 2.1 % (0.0-1.8) H 10/31/21 04:45 Lymph # (Auto) 0.3 K/mm3 (1.2-5.4) L 10/31/21 04:45 [place] # (Auto) 0.2 K/mm3 (0.0-0.8) 10/31/21 04:45 Eos # (Auto) 0.0 K/mm3 (0.0-0.4) 10/31/21 04:45 Baso # (Auto) 0.1 K/mm3 (0.0-0.1) 10/31/21 04:45 Seg Neutrophils % 88.6 % (40.0-70.0) H 10/31/21 04:45 Seg Neutrophils # 4.1 K/mm3 (1.8-7.7) 10/31/21 04:45 PT 13.9 Sec. (12.2-14.9) 10/29/21 11:41 INR 0.97 (0.87-1.13) 10/29/21 11:41 APTT 33.5 Sec. (24.2-36.6) 10/29/21 11:41 Sodium 138 mmol/L (137-145) 10/31/21 04:45 Potassium 6.1 mmol/L (3.6-5.0) H* 10/31/21 04:45 Chloride 95.2 mmol/L (98-107) L 10/31/21 04:45 Carbon Dioxide 27 mmol/L (22-30) 10/31/21 04:45 Anion Gap 22 mmol/L 10/31/21 04:45 BUN 57 mg/dL (7-17) H 10/31/21 04:45 Creatinine 8.1 mg/dL (0.6-1.2) H 10/31/21 04:45 Estimated GFR 6 ml/min 10/31/21 04:45 BUN/Creatinine Ratio 7 % 10/31/21 04:45 Glucose 216 mg/dL (65-100) H 10/31/21 04:45 POC Glucose 277 mg/dL (70-105) H 10/30/21 22:27 Calcium 7.9 mg/dL (8.4-10.2) L 10/31/21 04:45 Total Bilirubin 0.40 mg/dL (0.1-1.2) 10/29/21 11:41 AST 11 units/L (5-40) 10/29/21 11:41 ALT 7 units/L (7-56) 10/29/21 11:41 Alkaline Phosphatase 87 units/L (35-129) 10/29/21 11:41 Troponin T 0.080 ng/mL (0.00-0.029) H 10/29/21 11:41 Total Protein 7.0 g/dL (6.3-8.2) 10/29/21 11:41 Albumin 4.7 g/dL (3.9-5) 10/29/21 11:41 Albumin/Globulin Ratio 2.0 % 10/29/21 11:41 Triglycerides 119 mg/dL (2-149) 10/29/21 11:41 Cholesterol 185 mg/dL (50-199) 10/29/21 11:41 LDL Cholesterol Direct 111 mg/dL (50-130) 10/29/21 11:41 HDL Cholesterol 42 mg/dL (40-59) 10/29/21 11:41 Cholesterol/HDL Ratio 4.40 % 10/29/21 11:41 Hepatitis A IgM Ab Non-reactive (NonReactive) 10/29/21 15:55 Hep Bs Antigen Non-reactive (Negative) 10/29/21 15:55 Hep B Core IgM Ab Non-reactive (NonReactive) 10/29/21 15:55 Hepatitis C Antibody Non-reactive (NonReactive) 10/29/21 15:55 [place]/IV: Voiding Method Toilet Active Medications - Current Medications Current Medications: Generic Name Dose Route Start Last Admin Trade Name Freq PRN Reason Stop Dose Admin Acetaminophen 650 mg 10/29/21 14:21 10/31/21 06:18 Acetaminophen 325 Mg Tab PO 650 mg Q4H PRN Administration Pain MILD(1-3)/Fever >100.5/[place] Albuterol 2.5 mg 10/29/21 14:21 Albuterol 2.5 Mg/3 Ml Nebu IH Q4HRT PRN Shortness Of Breath Alprazolam 0.5 mg 10/29/21 14:23 10/30/21 20:29 Alprazolam 0.5 Mg Tab PO 0.5 mg HS PRN Administration Anxiety Amlodipine Besylate 5 mg 10/30/21 10:00 10/30/21 09:10 Amlodipine 5 Mg Tab PO 5 mg DAILY NINA Administration Dextrose 50 ml 10/31/21 09:15 Dextrose 50% In Water (25gm) 50 Ml Syringe IV 10/31/21 14:00 ONCE@0915 NR Hydromorphone HCl 0.5 mg 10/29/21 14:21 10/30/21 20:29 Hydromorphone 0.5 Mg/0.5 Ml Inj IV 0.5 mg Q23H PRN Administration Pain , Severe (7-10) Sodium Chloride 100 mls @ 999 mls/hr 10/30/21 08:49 Nacl 0.9% IV SRI PRN Hypotension CALC GLUCONATE 1GM/NS 100 ML 1 gm in 100 mls @ 200 mls/hr 10/31/21 09:30 Calcium Gluonate/Ns 1,000mg/100ml IV 10/31/21 14:00 ONCE@0930 NR Insulin Human Regular 4 units 10/31/21 09:15 Insulin Regular, Human 100 Units/1 Ml IV 10/31/21 14:00 ONCE@0915 NR Methylprednisolone Sodium Succinate 40 mg 10/29/21 22:00 10/31/21 05:45 Methylprednisolone Sod Succinate 40 Mg/1 Ml Inj IV 40 mg Q8HR NINA Administration Metoprolol Tartrate 25 mg 10/30/21 10:00 10/30/21 09:10 Metoprolol Tartrate 25 Mg Tab PO 25 mg DAILY NINA Administration Ondansetron HCl 4 mg 10/29/21 14:21 Ondansetron 4 Mg/2 Ml Inj IV Q8H PRN Nausea And Vomiting Oxycodone/Acetaminophen 1 tab 10/29/21 14:21 10/30/21 13:45 Oxycodone /Acetaminophen 5-325mg Tab PO 1 tab Q16H PRN Administration Pain, Moderate (4-6) Sodium Chloride 10 ml 10/29/21 22:00 10/30/21 21:14 Sodium Chloride 0.9% 10 Ml Flush Syringe IV 10 ml BID NINA Administration Sodium Chloride 10 ml 10/29/21 14:21 Sodium Chloride 0.9% 10 Ml Flush Syringe IV PRN PRN LINE FLUSH Sodium Polystyrene Sulfonate 30 gm 10/31/21 09:30 Sodium Polystyrene 15 Gm/60 Ml Oral Liqd PO 10/31/21 14:00 ONCE@0930 NR Tiotropium [place] 1 puff 10/30/21 10:00 10/30/21 14:36 Tiotropium 18 Mcg Cap Inhalation IH 1 puff QDAY NINA Administration
--- NOTE | 2021-10-31 11:48 | Operative Report ---
Operative Report Operative Report: Date of Procedure: 10/31/2021 Pre-operative Diagnosis: Complications of Dialysis Access Post-operative Diagnosis: Same Procedure(s): 1. Access Left Arm AV Fistula with 7 [place] Sheath Venous 2. Diagnostic Fistulogram with Central Venogram 3. Angioplasty of Left Arm AV Fistula with 8 x 40 [place] Balloon 4. Radiologic Supervision with Interpretation 5. Monitored Moderate Sedation (Total Anesthesia Time: 17 Minutes) Surgeon: Vlad Galeas M.D. Organ Fixer: None Anesthesia: Local/Monitored Moderate Sedation Total Anesthesia Time: 17 Minutes EBL: Minimal Counts: Correct Complications: None Condition: Stable Specimen: None Indication: The patient is a 56-year-old female with a history of end-stage renal disease who was on hemodialysis through an elevated and transposed brachiobasilic arteriovenous fistula. She has complaints of prolonged bleeding as well as pain with accessing the fistula. She is in need of a diagnostic fistulogram with possible intervention. She was given the risk, benefits, and alternative procedures and consented to the procedure. Angiographic Findings: The diagnostic fistulogram revealed that the cannulation zone of the fistula was patent without evidence of flow-limiting stenosis. There was 85% stenosis in the venous outflow of the fistula and the remainder of the fistula was patent without evidence of flow-limiting stenosis. The central venous system was patent without evidence of flow-limiting stenosis. After intervention the venous outflow of the fistula was patent with less than 20% residual stenosis. Description of Procedure: The patient was brought to the Cutting Room Supervisor and laid in supine position. After timeout was performed her left arm was prepped and draped in normal sterile fashion. Lidocaine was used anesthetize the skin and soft tissue overlying the fistula, near the arterial inflow, and a 21-gauge micropuncture needle was used to access the fistula towards the venous outflow. A 0.018 micropuncture wire was advanced into the fistula and after removing the needle a 7 Haitian sheath was placed by Seldinger technique. The patient had no IV access so I administered sedation including 1 mg of Versed and 50 mcg of fentanyl. Also during the procedure the patient complained of itching so she was given 25 mg of Benadryl IV. I performed a diagnostic fistulogram and central venogram with the previously described findings. I advanced a vertebral catheter and 0.035 floppy Glidewire through the stenosis and then exchanged the Glidewire for 0.035 Bentson wire. I performed angioplasty of the area of stenosis using an 8 x 40 [place] Balloon which resulted in less than 20% residual stenosis and brisk flow of contrast. At that point the balloon and wires were removed and manual pressure was used to achieve hemostasis after removing the sheath. Once hemostasis was achieved a sterile dressing was applied to the entry site and the patient was transported back to her room in stable condition.
[2021-10-31] MEDS ORDERED: SODIUM CHLORIDE 0.9% 100 ML IV PRN (11:59)
[2021-10-31] MEDS: oxyCODONE /ACETAMINOPHEN 5-325MG TAB PO PRN ×2 (12:53→22:16)
[2021-10-31] MEDS: TIOTROPIUM 18 MCG CAP INHALATION IH SCH (17:52)
[2021-10-31] MEDS: ALBUTEROL 2.5 MG/3 ML NEBU IH PRN (17:56)
[2021-10-31] MEDS: DEXTROSE 50% IN WATER (25GM) 50 ML SYRINGE IV NR ×2 (18:36→18:37)
[2021-10-31] MEDS: amLODIPine 5 MG TAB PO SCH (18:37)
[2021-10-31] MEDS: METOPROLOL TARTRATE 25 MG TAB PO SCH (18:37)
[2021-10-31] MEDS: ALPRAZolam 0.5 MG TAB PO PRN (22:17)
[2021-11-01] MEDS: methylPREDNISolone Sod Succinate 40 MG/1 ML INJ IV SCH ×3 (06:00→22:21)
--- NOTE | 2021-11-01 08:23 | Progress Note ---
Subjective Interval history: Assessment and plan End-stage kidney disease Patient is s/p hemodialysis treatment yesterday, feeling much better Outpatient labs reviewed from October 2021 her clearance was 1.4 satisfactory hemoglobin was 9.4, white cell count was 4.9 thousand, platelet count was 238,000, potassium was 5.0 phosphorus and PTH well controlled, Patient is currently being dialyzed at [facility] and is established with us #Significant stenosis of the venous arm, of the fistula s/p angioplasty, will need to follow-up with vascular surgery every 2 to 3 months and for now in about 6 weeks, #Hyperkalemia was likely resulting from poor clearance and venous stenosis, patient did receive dialysis last yesterday and also did receive medical treatment, check basic metabolic profile #Respiratory insufficiency, currently doing much better Anemia in end-stage kidney disease: To monitor and follow Patient is overall doing much better from renal standpoint and is stable If there is any further question in regard to this patient renal care please feel free to call me at [phone] Progress note by: Refugio Ornelas MD [address] [place] [id number] Tele [phone] [email or web address] Patient was seen today for follow-up of multiple renal related issues, Has had fistulogram, s/p dialysis, noted to have 85% stenosis of the venous arm post angioplasty reduced to 20% hemodialysis yesterday was uneventful Past medical history: Reviewed Family history: Reviewed Social history: Reviewed Allergies: Reviewed Physical examination: Vitals: Reviewed HEENT: No pallor or icterus oral mucosa moist Neck: Supple no JVD no thyromegaly Chest: Bilateral clear to auscultation anteriorly Heart: Regular rate and rhythm S1-S2 heard no S3-S4 Abdomen: Soft nontender no voluntary guarding rigidity rebound Extremity: Dry skin less than 1+ peripheral edema Psychiatric: No evidence of agitation and aggression noted Dermatology: No petechial rashes Labs and x-rays: Reviewed from today Objective - Vital Signs Vital signs: Vital Signs - 12hr 10/31/21 10/31/21 10/31/21 21:00 21:41 22:45 Temperature 97.6 F Pulse Rate 75 Respiratory 22 Rate Blood Pressure 187/74 O2 Sat by Pulse 95 95 96 Oximetry 11/01/21 11/01/21 11/01/21 00:14 04:36 05:32 Temperature 97.5 F L Pulse Rate 63 Respiratory 29 H 14 24 Rate Blood Pressure 133/85 O2 Sat by Pulse 100 Oximetry - Lab 10/31/21 04:45 10/31/21 04:45 Most recent lab results Calcium 7.9 mg/dL (8.4-10.2) L 10/31/21 04:45 Medications & Allergies - Medications Allergies/Adverse Reactions: Allergies codeine Allergy (Verified 10/29/21 13:29) Itching Home Medications: Home Medications Medication Instructions Recorded Confirmed Last Taken Type Albuterol Mdi (or & Nicu Only) 2 puff IH QID PRN 09/15/21 10/30/21 Unknown History [ProAir HFA Inhaler] Budesonide/Formoterol Fumarate 2 inhalation IH BID 09/15/21 10/30/21 Unknown History [Symbicort 160-4.5 Mcg Inhaler] Metoprolol [Lopressor TAB] 25 mg PO DAILY 09/15/21 10/30/21 Unknown History amLODIPine 5 mg PO DAILY 09/15/21 10/30/21 Unknown History ALBUTEROL NEB's [Proventil 0.083% 2.5 mg IH Q4H PRN 09/18/21 10/30/21 Unknown History NEBS] ALPRAZolam [Xanax TAB] 0.5 mg PO HS PRN 09/18/21 10/30/21 Unknown History Tiotropium [place] [Spiriva] 1 puff IH QDAY 09/18/21 10/30/21 Unknown History Insulin Aspart Prot/Aspart(Nf) 20 units SQ BIDAC 09/19/21 10/30/21 Unknown History [NovoLOG Mix 70/30 VIAL] Active Medications: Generic Name Dose Route Start Last Admin Trade Name Freq PRN Reason Stop Dose Admin Acetaminophen 650 mg 10/29/21 14:21 10/31/21 18:55 Acetaminophen 325 Mg Tab PO 650 mg Q4H PRN Administration Pain MILD(1-3)/Fever >100.5/BURTON Albuterol 2.5 mg 10/29/21 14:21 10/31/21 17:56 Albuterol 2.5 Mg/3 Ml Nebu IH 2.5 mg Q4HRT PRN Administration Shortness Of Breath Alprazolam 0.5 mg 10/29/21 14:23 10/31/21 22:17 Alprazolam 0.5 Mg Tab PO 0.5 mg HS PRN Administration Anxiety Amlodipine Besylate 5 mg 10/30/21 10:00 10/31/21 18:37 Amlodipine 5 Mg Tab PO 5 mg DAILY NINA Administration Hydromorphone HCl 0.5 mg 10/29/21 14:21 10/30/21 20:29 Hydromorphone 0.5 Mg/0.5 Ml Inj IV 0.5 mg Q23H PRN Administration Pain , Severe (7-10) Sodium Chloride 100 mls @ 999 mls/hr 10/30/21 08:49 Nacl 0.9% IV SRI PRN Hypotension Sodium Chloride 100 mls @ 999 mls/hr 10/31/21 11:59 Nacl 0.9% IV SRI PRN Hypotension Insulin Human Lispro 0 unit 11/01/21 07:30 Insulin Lispro 100 Unit/Ml SUB-Q ACHS [facility] Protocol Methylprednisolone Sodium Succinate 40 mg 10/29/21 22:00 11/01/21 06:00 Methylprednisolone Sod Succinate 40 Mg/1 Ml Inj IV 40 mg Q8HR NINA Administration Metoprolol Tartrate 25 mg 10/30/21 10:00 10/31/21 18:37 Metoprolol Tartrate 25 Mg Tab PO 25 mg DAILY NINA Administration Ondansetron HCl 4 mg 10/29/21 14:21 Ondansetron 4 Mg/2 Ml Inj IV Q8H PRN Nausea And Vomiting Oxycodone/Acetaminophen 1 tab 10/29/21 14:21 10/31/21 22:16 Oxycodone /Acetaminophen 5-325mg Tab PO 1 tab Q16H PRN Administration Pain, Moderate (4-6) Sodium Chloride 10 ml 10/29/21 22:00 10/31/21 21:45 Sodium Chloride 0.9% 10 Ml Flush Syringe IV 10 ml BID NINA Administration Sodium Chloride 10 ml 10/29/21 14:21 Sodium Chloride 0.9% 10 Ml Flush Syringe IV PRN PRN LINE FLUSH Tiotropium [place] 1 puff 10/30/21 10:00 10/31/21 17:52 Tiotropium 18 Mcg Cap Inhalation IH 1 puff QDAY NINA Administration
[2021-11-01] MEDS: TIOTROPIUM 18 MCG CAP INHALATION IH SCH (09:45)
[2021-11-01] MEDS: ALBUTEROL 2.5 MG/3 ML NEBU IH PRN (09:45)
[2021-11-01] MEDS: amLODIPine 5 MG TAB PO SCH (10:10)
[2021-11-01] MEDS: METOPROLOL TARTRATE 25 MG TAB PO SCH (10:12)
[2021-11-01] MEDS: ACETAMINOPHEN 325 MG TAB PO PRN ×2 (10:12→22:20)
[2021-11-01] MEDS: INSULIN LISPRO 100 UNIT/ML SUB-Q SCH ×4 (10:20→22:21)
[2021-11-01] MEDS ORDERED: CALCIUM GLUCONATE 2,000 MG in SODIUM CHLORIDE 0.9% 100 ML IV ONE (11:45)
[2021-11-01 14:54] LABS: Hematocrit 34.8 % (30.3-42.9); Hemoglobin 10.8 gm/dl (10.1-14.3); Mean Corpuscular HGB Conc 31 % (30-34); Mean Corpuscular Volume 96 fl (79-97); Platelet Count 197 K/mm3 (140-440); Red Blood Count 3.62 M/mm3 (3.65-5.03); Red Cell Distribution Width 16.2 % (13.2-15.2)
[2021-11-01 15:16] LABS: Calcium 7.4 mg/dL (8.4-10.2)
--- NOTE | 2021-11-01 15:36 | Discharge Summary ---
Providers - Providers Date of Admission: 10/29/21 14:21 Date of discharge: 11/01/21 Attending physician: TOBY DEVLIN 10/30/21 09:01 Consult to Physician [CONS] Routine Comment: Consulting Provider: SHAYLA COLLAZO Physician Instructions: Reason For Exam: ESRD 10/30/21 10:24 Consult to Physician [CONS] Urgent Comment: Consulting Provider: AIDA INGRAM Physician Instructions: Reason For Exam: Possible fistulogram Primary care physician: VISUAL MERCHANDISING ASSOCIATE Hospitalization Condition: Stable Disposition: 01 HOME / SELF CARE / HOMELESS Exam - Constitutional Vitals: Temp Pulse Resp BP Pulse Ox 97.5 F L 73 16 199/83 96 11/01/21 05:32 11/01/21 10:12 11/01/21 09:46 11/01/21 10:12 11/01/21 09:58 Plan Follow up with: PRIMARY MD MAXIMO [Primary Care Provider] - 7 Days
[2021-11-01 15:58] LABS: Anisocytosis 1+; Basophils % (Manual) 0 % (0.0-1.8); Eosinophils % (Manual) 0 % (0.0-4.3); Ovalocytes Few; Platelet Estimate Consistent w Auto; Poikilocytosis 1+; Tear Drop Cells Few; Total Cells Counted 100
[2021-11-01] MEDS: CALC GLUCONATE 1GM/NS 100 ML 1 GM/100 ML BAG IV SCH ×2 (16:44→18:08)
[2021-11-01] MEDS: oxyCODONE /ACETAMINOPHEN 5-325MG TAB PO PRN (17:05)
[2021-11-01] MEDS: ALPRAZolam 0.5 MG TAB PO SCH ×2 (22:20→23:11)
[2021-11-02] MEDS: methylPREDNISolone Sod Succinate 40 MG/1 ML INJ IV SCH ×2 (07:19→17:28)
--- NOTE | 2021-11-02 09:01 | Progress Note ---
Subjective Interval history: Assessment and plan End-stage kidney disease: Patient is s/p hemodialysis, tolerated treatment fairly well Due to a large BM I have advised her to consider dialyzing for at least 4 to 4- 1/2 hours,In the outpatient setting I have also told her to discuss this with her nurse clinical at the clinic she will #Malfunctioning dialysis access, s/p fistulogram has had 85% stenosis Patient has had ride issues not being dialyzed on Friday, I did clear this up with [facility] social media designer spoke and the y do have a ride arranged for this Friday and going forward she should not hopefully have any ride issues #Hyperkalemia, improved postdialysis, some of this was also resulting from poorly functioning access, #Respiratory insufficiency, improved #Patient was advised to get further education from [email or web address], prognosis appears to be guarded to poor long-term if she fails to comply with treatment recommendation lifestyle changes have been addressed with the patient If there are any renal related issues in regards to this patient please feel free to reach out without any hesitation at [phone] We'll continue to follow and make recommendation for renal standpoint. Progress note by: Refugio Ornelas MD [address] [place] [id number] Tele [phone] [email or web address] Patient was seen today for follow-up of multiple renal related issues Feeling better she has had dialysis, dialysis facility has right arranged for Friday discussed with the accounts receivable administrator yesterday events of 24 hours vitals labs intake output medications were reviewed Past medical history: Reviewed Family history: Reviewed Social history: Reviewed Allergies: Reviewed Physical examination: Vitals: Reviewed HEENT: No pallor or icterus oral mucosa moist Neck: Supple no JVD no thyromegaly Chest: Bilateral clear to auscultation anteriorly Heart: Regular rate and rhythm S1-S2 heard no S3-S4 Abdomen: Soft nontender no voluntary guarding rigidity rebound Extremity: Dry skin less than 1+ peripheral edema Psychiatric: No evidence of agitation and aggression noted Dermatology: No petechial rashes Labs and x-rays: Reviewed from today Objective - Vital Signs Vital signs: Vital Signs - 12hr 11/01/21 11/01/21 11/02/21 21:00 21:35 00:30 Temperature Pulse Rate 65 Respiratory 20 Rate Blood Pressure 172/78 O2 Sat by Pulse 95 98 98 Oximetry 11/02/21 03:56 Temperature 98.4 F Pulse Rate 58 L Respiratory 14 Rate Blood Pressure 145/87 O2 Sat by Pulse 100 Oximetry - Lab 11/01/21 14:45 11/01/21 14:45 Most recent lab results Calcium 7.4 mg/dL (8.4-10.2) L 11/01/21 14:45 Medications & Allergies - Medications Allergies/Adverse Reactions: Allergies codeine Allergy (Verified 10/29/21 13:29) Itching Home Medications: Home Medications Medication Instructions Recorded Confirmed Last Taken Type Albuterol Mdi (or & Nicu Only) 2 puff IH QID PRN 09/15/21 10/30/21 Unknown History [ProAir HFA Inhaler] Budesonide/Formoterol Fumarate 2 inhalation IH BID 09/15/21 10/30/21 Unknown History [Symbicort 160-4.5 Mcg Inhaler] Metoprolol [Lopressor TAB] 25 mg PO DAILY 09/15/21 10/30/21 Unknown History amLODIPine 5 mg PO DAILY 09/15/21 10/30/21 Unknown History ALBUTEROL NEB's [Proventil 0.083% 2.5 mg IH Q4H PRN 09/18/21 10/30/21 Unknown History NEBS] ALPRAZolam [Xanax TAB] 0.5 mg PO HS PRN 09/18/21 10/30/21 Unknown History Tiotropium [place] [Spiriva] 1 puff IH QDAY 09/18/21 10/30/21 Unknown History Insulin Aspart Prot/Aspart(Nf) 20 units SQ BIDAC 09/19/21 10/30/21 Unknown History [NovoLOG Mix 70/30 VIAL] Active Medications: Generic Name Dose Route Start Last Admin Trade Name Freq PRN Reason Stop Dose Admin Acetaminophen 650 mg 10/29/21 14:21 11/01/21 22:20 Acetaminophen 325 Mg Tab PO 650 mg Q4H PRN Administration Pain MILD(1-3)/Fever >100.5/[place] Albuterol 2.5 mg 10/29/21 14:21 11/01/21 09:45 Albuterol 2.5 Mg/3 Ml Nebu IH 2.5 mg Q4HRT PRN Administration Shortness Of Breath Alprazolam 0.5 mg 11/01/21 19:00 11/01/21 23:11 Alprazolam 0.5 Mg Tab PO Not Given BID [facility] Amlodipine Besylate 5 mg 10/30/21 10:00 11/01/21 10:10 Amlodipine 5 Mg Tab PO 5 mg DAILY NINA Administration Hydromorphone HCl 0.5 mg 10/29/21 14:21 10/30/21 20:29 Hydromorphone 0.5 Mg/0.5 Ml Inj IV 0.5 mg Q23H PRN Administration Pain , Severe (7-10) Sodium Chloride 100 mls @ 999 mls/hr 10/30/21 08:49 Nacl 0.9% IV SRI PRN Hypotension Sodium Chloride 100 mls @ 999 mls/hr 10/31/21 11:59 Nacl 0.9% IV SRI PRN Hypotension Insulin Human Lispro 0 unit 11/01/21 07:30 11/01/21 22:21 Insulin Lispro 100 Unit/Ml SUB-Q 4 unit ACHS NINA Administration Protocol Methylprednisolone Sodium Succinate 40 mg 10/29/21 22:00 11/02/21 07:19 Methylprednisolone Sod Succinate 40 Mg/1 Ml Inj IV 40 mg Q8HR NINA Administration Metoprolol Tartrate 25 mg 10/30/21 10:00 11/01/21 10:12 Metoprolol Tartrate 25 Mg Tab PO 25 mg DAILY NINA Administration Ondansetron HCl 4 mg 10/29/21 14:21 Ondansetron 4 Mg/2 Ml Inj IV Q8H PRN Nausea And Vomiting Oxycodone/Acetaminophen 1 tab 10/29/21 14:21 11/01/21 17:05 Oxycodone /Acetaminophen 5-325mg Tab PO 1 tab Q16H PRN Administration Pain, Moderate (4-6) Sodium Chloride 10 ml 10/29/21 22:00 11/01/21 22:26 Sodium Chloride 0.9% 10 Ml Flush Syringe IV 10 ml BID NINA Administration Sodium Chloride 10 ml 10/29/21 14:21 Sodium Chloride 0.9% 10 Ml Flush Syringe IV PRN PRN LINE FLUSH Tiotropium [place] 1 puff 10/30/21 10:00 11/01/21 09:45 Tiotropium 18 Mcg Cap Inhalation IH 1 puff QDAY NINA Administration
[2021-11-02] MEDS: TIOTROPIUM 18 MCG CAP INHALATION IH SCH (09:23)
[2021-11-02] MEDS: ALBUTEROL 2.5 MG/3 ML NEBU IH PRN (09:31)
[2021-11-02] MEDS: ALPRAZolam 0.5 MG TAB PO SCH (09:33)
[2021-11-02] MEDS: oxyCODONE /ACETAMINOPHEN 5-325MG TAB PO PRN (09:33)
[2021-11-02] MEDS: amLODIPine 5 MG TAB PO SCH (09:34)
[2021-11-02] MEDS: INSULIN LISPRO 100 UNIT/ML SUB-Q SCH ×3 (09:35→17:49)
[2021-11-02] MEDS: METOPROLOL TARTRATE 25 MG TAB PO SCH (09:35)
--- NOTE | 2021-11-02 09:43 | Discharge Summary ---
Providers - Providers Date of Admission: 10/29/21 14:21 Date of discharge: 11/02/21 Attending physician: MEL AMEZCUA 10/30/21 09:01 Consult to Physician [CONS] Routine Comment: Consulting Provider: SHAYLA COLLAZO Physician Instructions: Reason For Exam: ESRD 10/30/21 10:24 Consult to Physician [CONS] Urgent Comment: Consulting Provider: AIDA INGRAM Physician Instructions: Reason For Exam: Possible fistulogram Primary care physician: [employer] FORWARDER Hospitalization Reason for admission: ESRD, missed HD Condition: Stable Hospital course: 56 YO Female with ESRD on HD(M,W,F), HTN, DM, COPD, Noncompliance presents to ED for evaluation of shortness of breath over the past 3 days. Patient acknowledges multiple missed dialysis sessions over the past week due to inability to be transported to dialysis. The patient was admitted with diagnosis below: ESRD Fluid overload/pulmonary edema Acute hypoxic respiratory failure medical noncompliance Hypertension Diabetes mellitus type 2 Obesity hypoventilation syndrome 10/30/2021. Patient did receive hemodialysis yesterday. However, her potassium remained elevated. Nephrology report her fistula appears to be pulsatile and hence suspicion for stenosis. Patient will benefit from fistulogram. Nephrology discussed the care plan with Dr. Ingram. Patient will be treated with potassium lowering agent today and then subsequently be considered for dialysis post fistulogram tomorrow. 10/31/2021. Patient still with hypokalemia today of 6.1 patient reported pain and prolonged bleeding from her left arm arteriovenous fistula. She is also suffered from hyperkalemia since her admission which is likely secondary to poor clearance and recirculation of blood during dialysis. Patient is scheduled for diagnostic fistulogram with possible intervention. Patient will likely undergo hemodialysis after the procedure. 11/01/2021. Significant stenosis of the venous arm, of the fistula s/p angioplasty, will need to follow-up with vascular surgery every 2 to 3 months and for now in about 6 weeks. Patient received hemodialysis yesterday 11/02/2021. Patient will plan for discharge today Disposition: 01 HOME / SELF CARE / HOMELESS Final Discharge Diagnosis (Prints w/discharge instructions): ESRD. Fluid overload/pulmonary edema. Acute hypoxic respiratory failure. medical noncompliance. Hypertension. Malfunctioning dialysis access, s/p fistulogram has had 85% stenosis. Diabetes mellitus type 2. Obesity hypoventilation syndrome Core Measure Documentation - Palliative Care Palliative Care/ Comfort Measures: Not Applicable - Core Measures Any of the following diagnoses?: none Exam - Constitutional Vitals: Temp Pulse Resp BP Pulse Ox 98.4 F 66 18 145/87 100 11/02/21 03:56 11/02/21 09:31 11/02/21 09:31 11/02/21 03:56 11/02/21 03:56 General appearance: Present: no acute distress, well-nourished - EENT Eyes: Present: PERRL ENT: hearing intact, clear oral mucosa - Neck Neck: Present: supple, normal ROM - Respiratory Respiratory effort: normal Respiratory: bilateral: CTA - Cardiovascular Heart Sounds: Present: S1 & S2. Absent: rub, click - Extremities Extremities: pulses symmetrical, No edema Peripheral Pulses: within normal limits - Abdominal General gastrointestinal: Present: soft, non-tender, non-distended, normal bowel sounds Female genitourinary: Present: normal - Integumentary Integumentary: Present: clear, warm, dry - Musculoskeletal Musculoskeletal: gait normal, strength equal bilaterally - Psychiatric Psychiatric: appropriate mood/affect, intact judgment & insight - Neurologic Neurologic: CNII-XII intact, moves all extremities Plan Activity: advance as tolerated Weight Bearing Status: Weight Bear as Tolerated Diet: regular, renal Follow up with: PRIMARY CARE, [Primary Care Provider] - 7 Days CHARLENE HORNE MD [Staff Physician] - 7 Days LENNOX MALHOTRA MD [Staff Physician] - 7 Days Prescriptions: amLODIPine 5 mg PO DAILY #30 tab Metoprolol [Lopressor TAB] 25 mg PO DAILY #30 tab ALPRAZolam [Xanax TAB] 0.5 mg PO HS PRN #30 tab PRN Reason: Anxiety
--- NOTE | 2021-11-02 10:25 | Progress Note ---
Assessment and Plan Assessment and Plan - Patient Problems (1) Acute hypoxemic respiratory failure Current Visit: Yes Status: Acute Plan to address problem: Improved (2) Fluid overload Current Visit: Yes Status: Acute Qualifiers: Hypervolemia type: unspecified Qualified Code(s): E87.70 - Fluid overload, unspecified Plan to address problem: Nephrology team consulted. Urgent dialysis. (3) Noncompliance of patient with renal dialysis Current Visit: Yes Status: Acute Plan to address problem: Patient counseled regarding compliance with outpatient dialysis as well as outpatient medication. (4) Hypertension Current Visit: Yes Status: Acute Qualifiers: Hypertension type: primary hypertension Qualified Code(s): I10 - Essential (primary) hypertension Plan to address problem: Monitor blood pressure every shift, continue medical management. (5) Diabetes Current Visit: No Status: Acute Plan to address problem: Consistent carbohydrate diet, Accu-Chek, insulin protocol, hypoglycemia protocol. (6) End-stage renal disease on hemodialysis Current Visit: No Status: Acute Plan to address problem: Dialysis as per renal team, nephrology team consulted in ED. (7) Obesity hypoventilation syndrome Current Visit: No Status: Acute Plan to address problem: Balanced diet, weight reduction, increase physical activity discharge, outpatient pulmonary follow-up for sleep study. Outpatient bariatric surgery follow-up. (8) AV fistula malfunction Corrected Subjective Date of service: 11/01/21 Principal diagnosis: ESRD on HD.AVF n Interval history: 56 YO Female with ESRD on HD(M,W,F), HTN, DM, COPD, Noncompliance presents to ED for evaluation. Patient reports "I cannot breathe". Patient is states that she has experienced shortness of breath over the past 3 days with persistent symptoms over the same timeframe. Patient acknowledges multiple missed dialysis sessions over the past week due to inability to be transported to dialysis. Patient acknowledges shortness of breath, dyspnea on exertion as well as dyspnea at rest. EMS was notified and upon arrival the patient was found to be in distress and subsequently transported to [facility] for further care and evaluation of the aforementioned symptoms. The patient was seen and evaluated in the emergency department. All lab and imaging studies reviewed. Patient found to have a pulse oximetry of 86% on room air which is consistent with acute hypoxemi c respiratory failure with concomitant fluid overload due to missed dialysis. Nephrology team consulted in ED for urgent dialysis. Patient initiated on noninvasive positive pressure ventilation with mild improvement in symptoms. Patient admitted to medical floor due to increased risk of worsening symptoms and for medical stabilization. Patient denies fever, chills, chest pain, palpitations, skin rash, recent contact, known exposure to COVID-19. 10/30/2021. Patient did receive hemodialysis yesterday. However, her potassium remained elevated. Nephrology report her fistula appears to be pulsatile and hence suspicion for stenosis. Patient will benefit from fistulogram. Nephrology discussed the care plan with Dr. Valera. Patient will be treated with potassium lowering agent today and then subsequently be considered for dialysis post fistulogram tomorrow. 10/31/2021. Patient still with hypokalemia today of 6.1 patient reported pain and prolonged bleeding from her left arm arteriovenous fistula. She is also suffered from hyperkalemia since her admission which is likely secondary to poor clearance and recirculation of blood during dialysis. Patient is scheduled for diagnostic fistulogram with possible intervention. Patient will likely undergo hemodialysis after the procedure. 11/01/2021 Severely anxious Going home tomorrow Alprazolam added Objective - Constitutional Vitals: Vital Signs - 12hr 11/02/21 11/02/21 11/02/21 00:30 03:56 09:23 Temperature 98.4 F Pulse Rate 65 58 L Pulse Rate [ 68 Anterior Bilateral Throughout] Respiratory 20 14 Rate Respiratory 18 Rate [Anterior Bilateral Throughout] Blood Pressure 172/78 145/87 O2 Sat by Pulse 98 100 98 Oximetry 11/02/21 11/02/21 11/02/21 09:31 09:34 09:35 Temperature Pulse Rate 62 62 Pulse Rate [ 66 Anterior Bilateral Throughout] Respiratory Rate Respiratory 18 Rate [Anterior Bilateral Throughout] Blood Pressure 160/85 160/85 O2 Sat by Pulse Oximetry General appearance: Present: no acute distress, well-nourished - EENT Eyes: PERRL, EOM intact ENT: hearing intact, clear oral mucosa Ears: bilateral: normal - Neck Neck: supple, normal ROM - Respiratory Respiratory effort: normal Respiratory: bilateral: CTA - Breasts Breasts: normal - Cardiovascular Heart rate: 78 Rhythm: regular Heart Sounds: Present: S1 & S2. Absent: gallop, rub Extremities: pulses intact, No edema, normal color, Full ROM - Gastrointestinal General gastrointestinal: Present: soft, non-tender, non-distended, normal bowel sounds - Genitourinary Female genitourinary: normal - Integumentary Integumentary: clear, warm, dry - Musculoskeletal Musculoskeletal: 1, strength equal bilaterally - Neurologic Neurologic: moves all extremities - Psychiatric Psychiatric: memory intact, appropriate mood/affect, intact judgment & insight - Labs CBC & Chem 7: 11/01/21 14:45 11/01/21 14:45 Labs: Abnormal lab results 11/01/21 11/01/21 11/01/21 Range/Units 11:32 14:45 14:45 RBC 3.62 L (3.65-5.03) M/mm3 RDW 16.2 H (13.2-15.2) % Seg Neuts % (Manual) 87.0 H (40.0-70.0) % Lymphocytes % (Manual) 12.0 L (13.4-35.0) % Lymphocytes # (Manual) 0.8 L (1.2-5.4) K/mm3 Chloride 95.7 L (98-107) mmol/L BUN 60 H (7-17) mg/dL Creatinine 7.5 H (0.6-1.2) mg/dL Glucose 363 H (65-100) mg/dL POC Glucose 280 H (70-105) mg/dL Calcium 7.4 L (8.4-10.2) mg/dL 11/01/21 11/01/21 11/02/21 Range/Units 16:13 21:24 07:38 RBC (3.65-5.03) M/mm3 RDW (13.2-15.2) % Seg Neuts % (Manual) (40.0-70.0) % Lymphocytes % (Manual) (13.4-35.0) % Lymphocytes # (Manual) (1.2-5.4) K/mm3 Chloride (98-107) mmol/L BUN (7-17) mg/dL Creatinine (0.6-1.2) mg/dL Glucose (65-100) mg/dL POC Glucose 293 H 271 H 248 H (70-105) mg/dL Calcium (8.4-10.2) mg/dL HEART Score - HEART Score Troponin: Troponin T 0.080 ng/mL (0.00-0.029) H 10/29/21 11:41
[2021-11-02] MEDS: ACETAMINOPHEN 325 MG TAB PO PRN ×2 (13:21→17:49)
[2021-11-02] MEDS ORDERED: cloNIDine 0.1 MG TAB PO ONE (18:02)
[2021-11-02 18:17] VITALS: BP 187/75
== END 2021-11-02 19:00 | disposition home or self-care (01) | DRG 252 ==
LOC: ED 09:18 → 3A 14:21
PROVIDERS: ADMIT Internal Medicine; ATTEND Hospitalist
PROC: 5A1D70Z Performance of Urinary Filtration, Intermittent, Less than 6 Hours Per Day (ICD-10-PCS; 2021-10-29)
PROC: 5A09457 Assistance with Respiratory Ventilation, 24-96 Consecutive Hours, Continuous Positive Airway Pressure (ICD-10-PCS; 2021-10-29)
PROC: 5A1D70Z Performance of Urinary Filtration, Intermittent, Less than 6 Hours Per Day (ICD-10-PCS; 2021-10-30)
PROC: 057A3ZZ Dilation of Left Brachial Vein, Percutaneous Approach (ICD-10-PCS; principal; 2021-10-31)
PROC: 057F3ZZ Dilation of Left Cephalic Vein, Percutaneous Approach (ICD-10-PCS; 2021-10-31)
PROC: B51W1ZZ Fluoroscopy of Dialysis Shunt/Fistula using Low Osmolar Contrast (ICD-10-PCS; 2021-10-31)
PROC: 5A1D70Z Performance of Urinary Filtration, Intermittent, Less than 6 Hours Per Day (ICD-10-PCS; 2021-10-31)
DX: T82.858A Stenosis of other vascular prosthetic devices, implants and grafts, initial encounter (principal); N18.6 End stage renal disease; J96.01 Acute respiratory failure with hypoxia; J81.0 Acute pulmonary edema; E87.70 Fluid overload, unspecified; I13.2 Hypertensive heart and chronic kidney disease with heart failure and with stage 5 chronic kidney disease, or end stage renal disease; E66.2 Morbid (severe) obesity with alveolar hypoventilation; E11.22 Type 2 diabetes mellitus with diabetic chronic kidney disease; I50.9 Heart failure, unspecified; Z99.2 Dependence on renal dialysis; Z91.15 Patient's noncompliance with renal dialysis; J44.9 Chronic obstructive pulmonary disease, unspecified; D63.1 Anemia in chronic kidney disease; E87.5 Hyperkalemia; Z88.6 Allergy status to analgesic agent; Y83.8 Other surgical procedures as the cause of abnormal reaction of the patient, or of later complication, without mention of misadventure at the time of the procedure; Y92.89 Other specified places as the place of occurrence of the external cause; Z68.43 Body mass index [BMI] 50.0-59.9, adult
CPT/HCPCS: 36415; 36902; 71045; 80048; 80053; 80061; 80074; 82962; 84484; 85007; 85025; 85610; 85730; 93005; 94640; 94660; 94760; G0378; J3490; Q9967; C1725; C1769; C1894; J0610; J1170; J1200; J1644; J1815; J2060; J2250; J2920; J3010; J7030